=== PATIENT | male | born 1965 | race Caucasian/White ===

== ENCOUNTER 2022-01-18 10:08 | Emergency (ER) | payer MEDICAID, SELFPAY ==
[2022-01-18 10:09] VITALS: BP 120/66; PULSE 71; RESP 20; TEMP 36.4; BMI 33.0
--- NOTE | 2022-01-18 10:22 | ED.VIS.LOWEX ---
HPI History of Present Illness Chief Complaint: Lower Extremity Injury Detail of Chief Complaint: Atraumatic left great toe pain Informant: patient and spouse/S.O. Occured/Mechanism Mechanism/Context: Yes other see comment below Comment: Atraumatic Onset/Context/Timing Onset: Yesterday (1700) Context: Sudden Onset Timing: Continuous Quality of Pain: Aching and Throbbing Location: MTP joint left great toe Current Severity: Moderate Maximum Severity: Severe Worsened by: Pressure Relieved by: Nothing Associated Symptoms Associated Symptoms: Negative for Parasthesia, Weakness or Loss of Funtion Narrative Narrative: Patient is a 56-year-old male with history of gout who presents with atraumatic left great toe pain that started last evening at 1700. He states it hurts to put on or take off his shoe. He states any type of pressure increases the pain. He denies fever, chills or night sweats. He does have history of heart disease, hypertension and type 2 diabetes. Patient denies fever, chills night sweats. Patient denies paresthesia, anesthesia or motor weakness Tetanus Immunization: Unknown Prior similar symptoms: Yes Recent Illness/Hospitalization: No PFSH PFSH Home Medications prednisone 20 mg tablet 60 mg PO DAILY #15 TABLETS 01/18/22 [Rx Last Taken Unknown] Social History (Updated 01/18/22 @ 10:[address] Pawan Young MD) household members: spouse alcohol intake: current substance use type: does not use ROS ROS ED Constitutional Constitutional ED: Denies chills, fever(s), subjective, sweats or weight loss Cardiovascular Cardiovascular: Denies chest pain Respiratory/Chest Respiratory/Chest: Denies cough Endocrine Endocrinology: Denies polydipsia, polyphagia or polyuria Hematologic/Lymphatic Hematologic/Lymphatic: Denies easy bleeding or easy bruising EXAM Physical Exam Const Vital Signs: 01/18/22 10:09 Temperature 97.5 F L Temperature Source Temporal Pulse Rate 71 Respiratory Rate 20 H Blood Pressure 120/66 Blood Pressure Mean 84 Positive well nourished, well developed and obese; Negative for cachectic, contractures or unkempt Constitutional Narrative: Patient appears uncomfortable. General Appearance ED: well developed; Negative for unkempt, cachectic, contractures or NAD Nutritional Appearance: obese; Negative for cachectic HEENT Reports moist mucous membranes normocephalic and atraumatic Eyes PERRL Eyes Narrative: Extract muscle intact. Sclera is anicteric. Neck full ROM Resp normal respiratory effort Cardio regular rate and regular rhythm Extremity normal to inspection; Negative for full ROM Extremity Narrative: There is pain to palpation MTP joint of the left great toe. There is slight swelling. There is bogginess of the joint. There is pain with passive dorsi and plantarflexion of the great toe. General Extremety ED: Negative for cyanosis or edema General Extremity: Negative for cyanosis or edema Neuro oriented x3, CN's II-XII intact bilaterally and no sensory deficits noted Motor Exam: strength 5/5 throughout Psych mental status grossly normal Appearance: Negative for unkempt Skin no wounds Lesions: no lesions Rashes: no rashes MDM MDM MDM Narrative Medical decision making narrative: With no history of trauma prior history of gout and pain at the MTP joint of the great toe patient's history and physical is consistent with acute gouty flare. He was treated with prednisone. Discharge Plan Triage Chief Complaint: Lower Extremity Injury ED Provider: Pawan Young Dx/Rx/DC Orders Clinical Impression: Gouty arthritis of left great toe Instructions: ED Gout, ED Gout Diet Prescriptions: New prednisone 20 mg tablet 60 mg PO DAILY Qty: 15 0RF Referrals: Doctor,Your [STAFF PHYSICIAN] - 3-5 Days if not improving Disposition Disposition: Home, Self Care
[2022-01-18] MEDS: predniSONE 20 MG Tablet 60 MG PO (10:47)
== END 2022-01-18 10:54 | disposition home or self-care (01) ==
LOC: ED 10:39
PROVIDERS: Emergency Provider Emergency Medicine; PCP Internal Medicine; Visit Provider Emergency Medicine
DX: M10.9 Gout, unspecified (principal); E11.9 Type 2 diabetes mellitus without complications; I10 Essential (primary) hypertension; E66.9 Obesity, unspecified; M79.675 Pain in left toe(s)
CPT/HCPCS: 99283

== ENCOUNTER 2022-02-01 10:54 | Emergency (ER) | payer MEDICAID, SELFPAY ==
[2022-02-01 10:54] VITALS: BP 113/64; PULSE 50; RESP 14; TEMP 36.4; O2SAT 99; BMI 31.7
--- NOTE | 2022-02-01 11:14 | EDS_ITS ---
HPI History of Present Illness Chief Complaint: Upper Extremity Injury Informant: patient Narrative Narrative: 6-year-old male with history of chronic left shoulder pain presenting with worsening left shoulder pain as well as abscess to his left forearm. Patient states he started a new job 2 days ago and does a lot of repetitive movements with his arms which he thinks is what triggered it. Pain is worse over the anterior aspect of his shoulder. Denies any injury or trauma. States has been having this pain for at least 6 months. Is in pain management in [place] with Dr. Oconnor, and is due to have a refill of his Percocet tomorrow. Denies any numbness and tingling of his arm. Does note that over the weekend he had redness and swelling of his left forearm. He drained some purulence out of it and it seemed to be getting better. He is worried that he might need to be drained more. States the redness around the swelling has improved since initial drainage. No other complaints at this time. Is not currently on antibiotics. Was recently on a course of prednisone for gout flare. [facility] Medical History Diabetes Home Medications prednisone 20 mg tablet 60 mg PO DAILY #15 TABLETS 01/18/22 [Rx Last Taken Unknown] Allergy/AdvReac Type Severity Reaction Status Date / Time No Known Allergies Allergy Verified 02/01/22 10:59 Surgical History H/O knee surgery S/P CABG x 4 Social History household members: spouse Smoking Status: Current every day smoker tobacco type: cigarettes alcohol intake: current substance use type: does not use ROS ROS ED Constitutional Constitutional ED: Denies chills or fever(s) Eyes Eyes: Denies change in vision ENT ENT ED: Denies sore throat Cardiovascular Cardiovascular: Denies chest pain or palpitations Respiratory/Chest Respiratory/Chest: Denies cough Gastrointestinal Gastrointestinal: Denies abdominal pain or nausea Musculoskeletal Musculoskeletal: Reports other Details: left shoulder pain ; Denies back pain or myalgias Integumentary Reports abscess Neurologic Neurologic: Denies headache(s), paresthesias or weakness Psychiatric Psychiatric: Denies anxiety EXAM Physical Exam Const Vital Signs: 02/01/22 10:54 Temperature 97.5 F L Temperature Source Temporal Pulse Rate 50 L Respiratory Rate 14 Blood Pressure 113/64 Blood Pressure Mean 80 Pulse Ox 99 Oxygen Delivery Method Room Air Positive well nourished and well developed General Appearance ED: well developed and NAD HEENT normocephalic and atraumatic Eyes PERRL Chest Wall inspection of chest normal and palpation of chest normal Resp normal respiratory effort and clear to auscultation bilaterally Cardio regular rate and regular rhythm Cardio Narrative: 2+ radial pulses GI non-distended Extremity normal to inspection and full ROM Extremity Narrative: Patient is pain with palpation of the left bicipital groove of the shoulder. No obvious deformity of the arm or shoulder. Range of motion grossly intact. Normal line tender flakeboard strength. Neuro oriented x3 and no focal motor deficits Motor Exam: muscle tone normal throughout; Negative for general weakness Psych mental status grossly normal Skin Skin Narrative: 2 cm raised circumferential erythematous lesion with some mild central fluctuance of the left mid forearm, ventral aspect. There is no overlying scab. No surrounding cellulitic changes or induration. MDM MDM MDM Narrative Medical decision making narrative: .Patient is evaluated for acute on chronic shoulder pain. He started a new job and is doing more repetitive movements. Presentation most consistent with bicep tendinitis as he is in chronic pain medication we will give 1 dose of Percocet here but he will need to follow-up further with his pain management doctor for refill of his medicine. His abscess appears to be partially healed but will be deroofed to allow for further drainage. I do not think requires any antibiotics at this time. Is counseled to also take anti-inflammatories. Given that he was just on steroids for gout, would like to defer another dose of steroids at this time for his tendinitis. We given referral for orthopedics. Discharge Plan Triage Chief Complaint: Upper Extremity Injury ED Provider: Kayce Rodriguez Dx/Rx/DC Orders Clinical Impression: Biceps tendinitis on left, Abscess of forearm, left, Left anterior shoulder pain Instructions: ED Abscess Incision And Drainage, ED Tendonitis Prescriptions: No Action prednisone 20 mg tablet 60 mg PO DAILY Qty: 15 0RF Primary Care Provider: Clovis Lynn Referrals: Chao Teixeira MD [Med Staff - Active Staff] - Clovis Lynn MD [Primary Care Provider] - Disposition Disposition: Home, Self Care
[2022-02-01] MEDS: oxyCODONE 5 MG Tablet PO (11:19)
== END 2022-02-01 11:31 | disposition home or self-care (01) ==
LOC: ED 11:21
PROVIDERS: Emergency Provider Emergency Medicine; PCP Internal Medicine; Visit Provider Emergency Medicine
DX: M75.22 Bicipital tendinitis, left shoulder (principal); E11.9 Type 2 diabetes mellitus without complications; L02.414 Cutaneous abscess of left upper limb; M10.9 Gout, unspecified; M25.512 Pain in left shoulder; G89.29 Other chronic pain; F17.210 Nicotine dependence, cigarettes, uncomplicated; Z79.52 Long term (current) use of systemic steroids
CPT/HCPCS: 99283

== ENCOUNTER 2022-03-18 13:06 | Emergency (ER) | payer MEDICAID, SELFPAY ==
[2022-03-18 13:07] VITALS: BP 169/75; PULSE 53; RESP 16; TEMP 36.6; O2SAT 98; BMI 31.7
--- NOTE | 2022-03-18 13:52 | ED.RN ---
UPON ASSESSMENT OF PATIENT, PATIENT TELLS THIS RN THAT HE AND SIGNIFICANT OTHER ARE HOMELESS. THIS RN OFFERS PT AND RESOURCES. THEY STATE THEY ARE AWAITING VERIFICATION OF INCOME FOR AN APARTMENT. THIS RN MAKES VALENTINA FROM SOCIAL WORK AWARE.
--- NOTE | 2022-03-18 14:04 | CM.ED ---
SW Note Referral Source: sponge packer Reason: Homelessness RN advised that patient is homeless. Working with local agency regarding homelessness. RN stated patient aware of resources. SW met with patient and his significant other. Patient said that they are working with [facility]. They are just waiting for his significant other's income verification. SW provided 2-1-1 [facility] resource list. No other issues or concerns voiced. SW remains available if needs arise. [facility]
--- NOTE | 2022-03-18 14:19 | EX.ED.DYSGE1 ---
HPI History of Present Illness Chief Complaint: Abscess Narrative Narrative: Patient presents with his because of abscess on his left hand that has been there for a week. He had one on his forearm that he states they treated by squeezing and rubbing with an alcohol pad. He developed a small pustule on the dorsum of his left hand, and tried to squeeze it but he states that its becoming larger and more sore and tender. It developed a scab that is also growing larger. He denies any fevers or chills. No nausea or vomiting. No other symptoms. He presents for evaluation of this. He states that while he is diabetic, his sugars are well under control. [facility] Medical History Diabetes Home Medications prednisone 20 mg tablet 60 mg PO DAILY #15 TABLETS 01/18/22 [Rx Last Taken Unknown] sulfamethoxazole 800 mg-trimethoprim 160 mg tablet (Bactrim DS) 1 tab PO BID #14 tabs 03/18/22 [Rx Last Taken Unknown] Allergy/AdvReac Type Severity Reaction Status Date / Time No Known Allergies Allergy Verified 03/18/22 13:06 Surgical History H/O knee surgery S/P CABG x 4 Social History household members: spouse Smoking Status: Current every day smoker tobacco type: cigarettes alcohol intake: current substance use type: does not use ROS ROS ED ROS Narrative Constitutional: No fever, no chills. HEENT: No sore throat. No neck pain. No loss of vision. No rhinorrhea. Cardiovascular: No chest pain. No palpitations. No pedal edema. Respiratory: No cough, no shortness of breath. Abdominal: No abdominal pain. No nausea. No vomiting. Genitourinary: No dysuria. No hematuria. Musculoskeletal: No myalgias. No arthralgias. Neurologic: No headaches. No dizziness. No lightheadedness. Skin: No rash. No change in color. Positive lesion on left hand/abscess with tenderness to palpation. Psychiatric: No depression. No anxiety. EXAM Physical Exam Narrative Exam Narrative: Afebrile. Vital signs noted. HEENT: Normocephalic. Atraumatic. PERRL, EOMI. Neck soft and supple. No point tenderness or step off. Cardiovascular: Regular rate and rhythm. No murmurs, rubs, or gallops appreciated. Respiratory: No tachypnea. Lungs clear to auscultation bilaterally. Gastrointestinal: Abdomen soft, nontender, with normoactive bowel sounds. No rebound or guarding. Neurological: Awake. Alert. Nonfocal, nonlateralizing. Skin: No rash. Normal color. No pallor. +1 cm eschar on dorsum of left hand near the proximal wrist. Positive induration. Minimal to no fluctuance. Musculoskeletal: No pedal edema. Full range of motion extremities. Const Vital Signs: 03/18/22 13:07 03/18/22 15:08 Temperature 97.8 F Temperature Source Temporal Pulse Rate 53 L Respiratory Rate 16 18 Blood Pressure 169/75 H Blood Pressure Mean 106 Pulse Ox 98 Oxygen Delivery Method Room Air MDM MDM MDM Narrative Medical decision making narrative: I am unsure as to how much purulent material is contained underneath. Patient would like this Removed or at least attempt made at incision and drainage. He was told of the risk of continued infection and scarring as he is diabetic and acknowledges an understanding. He was given his first dose of Bactrim here in the emergency department. I feel he would benefit more from this healing abscess with a weeks worth of antibiotics. Lidocaine 1% was used as local anesthetic. See procedure note for details. Given that he is a type II diabetic, I do feel he would benefit from antibiotics. He was given a prescription for Bactrim DS for the next week. He will have a wound check by his primary care physician in the next 3 days. Return instructions to the emergency department were reviewed. Disposition is discharged home in stable condition. Procedures Other Procedures Procedure(s): Incision and drainage: Lidocaine 1% was used as a local anesthetic. Povidine iodine was used as a topical antiseptic. #11 blade was used to make a stellate incision. Manual expression of small amount of purulent material was produced with minimal serosanguineous fluid. Area was lightly irrigated. I do not feel that it would except packing. Patient noted improvement in his pain level in his hand and tolerated the procedure well. Discharge Plan Triage Chief Complaint: Abscess ED Provider: Quinten Bond Dx/Rx/DC Orders Clinical Impression: Type 2 diabetes mellitus, Abscess of hand, left Instructions: ED Abscess Incision And Drainage Prescriptions: New sulfamethoxazole-trimethoprim [Bactrim DS] 800-160 mg tablet 1 tab PO BID Qty: 14 0RF No Action prednisone 20 mg tablet 60 mg PO DAILY Qty: 15 0RF Stand Alone Forms: ED Work / School Excuse Primary Care Provider: Clovis Lynn Referrals: Clovis Lynn MD [Primary Care Provider] - 3-5 Days Disposition Disposition: Home, Self Care
[2022-03-18] MEDS: Lidocaine 1% (20 ml mdv) 20 ML Vial INFILT (14:42)
[2022-03-18] MEDS: Smz/Tmp Ds Tablet 1 TABLET PO (14:42)
[2022-03-18 15:08] VITALS: RESP 18
== END 2022-03-18 15:17 | disposition home or self-care (01) ==
PROVIDERS: Emergency Provider Emergency Medicine; PCP Internal Medicine; Visit Provider Emergency Medicine
DX: L02.512 Cutaneous abscess of left hand (principal); E11.9 Type 2 diabetes mellitus without complications; F17.210 Nicotine dependence, cigarettes, uncomplicated; Z95.1 Presence of aortocoronary bypass graft
CPT/HCPCS: 10060; 99283

== ENCOUNTER 2022-07-05 10:49 | Emergency (ER) | payer MEDICAID, SELFPAY ==
[2022-07-05 10:50] VITALS: BP 169/90; PULSE 98; RESP 14; TEMP 36.6; O2SAT 98; BMI 31.7
--- NOTE | 2022-07-05 11:38 | RAD_ITS ---
STUDY: X-RAY - LEFT FOOT CLINICAL: Male, 57 years old. PAIN TECHNIQUE: 3 view(s) of the foot. COMPARISON: None. FINDINGS: Normal talus, calcaneus, and tarsal bones. Normal visualized subtalar, talonavicular, calcaneocuboid, tarsal and tarsometatarsal articulations. Normal metatarsi. There is mild degenerative arthrosis of the metatarsophalangeal joint of the hallux . Normal tibial and fibular sesamoid bones. Normal interphalangeal joint of the great toe. Normal phalanges of the great toe. Normal second through fifth metatarsophalangeal joints. Normal interphalangeal joints and phalanges of the lesser toes. Atherosclerotic calcifications are present. The soft tissue structures are unremarkable. There is no demonstrated fracture. RAD/Foot min 3 Views IMPRESSION: 1. 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
--- NOTE | 2022-07-05 13:16 | EX.ED.DYSGE1 ---
HPI <PORTIA Lu - Last Filed: 07/05/22 14:48> History of Present Illness Chief Complaint: Cold Sx Narrative Narrative: Patient presents today with right-sided facial pressure and pain that started on Monday. He states he has had nasal congestion and a cough as well. He denies fever, shortness of breath, chest pain, nausea, vomiting, and diarrhea. Patient also is complaining of left first toe redness and pain at the MTP. He has a history of gout and thinks this feels like gout. He states he cannot take the preventative medication for gout. He did not injure his toe in any way. [facility] <PORTIA Lu - Last Filed: 07/05/22 14:48> [facility] Medical History (Updated 07/05/22 @ 13:[address] Andrea Queen MD) Diabetes Gout Home Medications prednisone 20 mg tablet 60 mg PO DAILY #15 TABLETS 01/18/22 [Rx Last Taken Unknown] sulfamethoxazole 800 mg-trimethoprim 160 mg tablet (Bactrim DS) 1 tab PO BID #14 tabs 03/18/22 [Rx Last Taken Unknown] prednisone 10 mg tablet 10 mg PO UD #30 tabs 07/05/22 [Rx Last Taken Unknown] Allergy/AdvReac Type Severity Reaction Status Date / Time No Known Allergies Allergy Verified 07/05/22 10:52 Surgical History H/O knee surgery S/P CABG x 4 Social History household members: spouse Smoking Status: Current every day smoker tobacco type: cigarettes alcohol intake: current substance use type: does not use ROS <PORTIA Lu - Last Filed: 07/05/22 14:48> ROS ED Constitutional Constitutional ED: Denies chills, fever(s) or sweats Eyes Eyes: Denies blurry vision, change in vision or diplopia ENT ENT ED: Reports nasal congestion and sinus pressure; Denies ear pain or sore throat Cardiovascular Cardiovascular: Denies chest pain or palpitations Respiratory/Chest Respiratory/Chest: Denies cough, dyspnea or dyspnea on exertion Gastrointestinal Gastrointestinal: Denies abdominal pain, diarrhea, nausea or vomiting Genitourinary Genitourinary ED: Denies dysuria, hematuria or urinary frequency Musculoskeletal Musculoskeletal: Denies arthralgias, back pain or myalgias Integumentary Denies abscess, Abrasions or rash Neurologic Neurologic: Denies headache(s), paresthesias or weakness Psychiatric Psychiatric: Denies anxiety, depression or suicidal ideation Endocrine Endocrinology: Denies cold intolerance or heat intolerance EXAM <PORTIA Lu - Last Filed: 07/05/22 14:48> Physical Exam Const Vital Signs: 07/05/22 10:50 07/05/22 13:54 Temperature 97.9 F Temperature Source Temporal Pulse Rate 98 74 Respiratory Rate 14 18 Blood Pressure 169/90 H 191/94 H Blood Pressure Mean 116 Pulse Ox 98 97 Oxygen Delivery Method Room Air Positive well nourished and well developed General Appearance ED: well developed and NAD HEENT Reports TM's clear and moist mucous membranes Negative for trauma or tenderness Tympanic Membrane ED: Yes TM's clear Throat: posterior oropharynx normal, tonsils normal and uvula midline Eyes PERRL and EOMs intact bilaterally Neck no lymphadenopathy and supple Chest Wall inspection of chest normal and palpation of chest normal Resp normal respiratory effort and clear to auscultation bilaterally Cardio regular rate, regular rhythm and no murmurs GI non-tender, non-distended and no masses Palpation: soft Extremity Extremity Narrative: First left toe erythemic, tender, and edematous at the MTP. Neuro oriented x3, CN's II-XII intact bilaterally and no sensory deficits noted Sensorium / Orientation: alert Motor Exam: strength 5/5 throughout Psych mental status grossly normal Skin no rashes or lesions noted, no wounds and skin turgor normal <Dr. Andrea Queen MD - Last Filed: 07/05/22 13:52> Physical Exam Const Vital Signs: 07/05/22 10:50 07/05/22 13:54 Temperature 97.9 F Temperature Source Temporal Pulse Rate 98 74 Respiratory Rate 14 18 Blood Pressure 169/90 H 191/94 H Blood Pressure Mean 116 Pulse Ox 98 97 Oxygen Delivery Method Room Air MDM <PORTIA Lu - Last Filed: 07/05/22 14:48> MDM MDM Narrative Medical decision making narrative: Patient has had nasal congestion and some discomfort in his right maxillary sinus area since Monday. He has not had a fever or chills. He has not tried taking any decongestants. I do not feel antibiotics are indicated at this time as it has only been four days of symptoms and he has been afebrile. I have encouraged him to begin taking the counter decongestant such as Sudafed as long as his blood pressure is not over 160 systolic or take nasal decongestions. He has been put on prednisone for his gout and told to begin taking ibuprofen. I am comfortable with patient discharging home in stable condition. COVID and flu are negative. Three-view x-ray of the left foot negative for any acute findings. Patient is comfortable with plan. <Dr. Andrea Queen MD - Last Filed: 07/05/22 13:52> [facility] Treatment and Re-Evaluation Narrative: Seen and evaluated independently and in conjunction with physician material assistant. Agree with notes above unless documented otherwise. Patient with couple days of nasal congestion, some discomfort in his right maxillary area into his retro-orbital area, but without a headache or fevers/chills. He has green nasal discharge. No coughing, odynophagia, dyspnea. He states he has been unable to take Colcrys for his gout due to his CABG, but he feels like he has a gout flareup in his left great MTPJ. No injury, it has been bothering him for a few days now, red, hurts to barely touch it. On exam, it is erythematous, warm, very tender. He can move the toe. There is no abscess or nidus for infection. It is consistent with gout, especially given his history of it. We will put him on prednisone for that. I do not suspect an intracranial abnormality or bacterial sinusitis, so I do not think antibiotics are indicated but I did discuss decongestants, particularly nasal with him which I recommend trying. He is comfortable with that plan. He already has a prescription for Percocet being filled for him. With regards to data here, swabs for COVID influenza are negative, and 3 view x-ray of the left foot on my interpretation are negative for any acute. Discharge Plan Triage Chief Complaint: Cold Sx ED Midlevel Provider: Jihan Rodríguez ED Provider: Andrea Queen Dx/Rx/DC Orders Clinical Impression: Gout, Sinus congestion Instructions: ED Gout, ED Sinusitis (No Antibiotics) Prescriptions: New prednisone 10 mg tablet 10 mg PO UD Qty: 30 0RF Rx Instructions: Take 4 tablets daily for 3 days, then 3 daily for 3 days, then 2 daily for 3 days, then 1 a day for 3 days No Action prednisone 20 mg tablet 60 mg PO DAILY Qty: 15 0RF sulfamethoxazole-trimethoprim [Bactrim DS] 800-160 mg tablet 1 tab PO BID Qty: 14 0RF Primary Care Provider: Clovis Lynn Referrals: Clovis Lynn MD [Primary Care Provider] - 5-7 Days Activity Restrictions/Additional Instructions: Begin taking nasal spray as directed on the bottle containing oxymetazoline or phenylephrine for the sinus symptoms. You can take [id number] decongestants such as Sudafed for the next few days, but watch her blood pressure, do not take if you are over 160 systolic. Please follow-up with PCP if symptoms do not improve in 5 to 7 days. Return if symptoms worsen. Disposition Disposition: Home, Self Care Discharge Date/Time: 07/05/22 13:56
[2022-07-05] MEDS: predniSONE 20 MG Tablet 40 MG PO (13:26)
[2022-07-05 13:54] VITALS: BP 191/94; PULSE 74; RESP 18; O2SAT 97
== END 2022-07-05 13:56 | disposition home or self-care (01) ==
PROVIDERS: Emergency Provider Emergency Medicine; PCP Internal Medicine; Visit Provider Emergency Medicine
DX: M10.9 Gout, unspecified (principal); E11.9 Type 2 diabetes mellitus without complications; R09.81 Nasal congestion; Z20.822 Contact with and (suspected) exposure to COVID-19; F17.210 Nicotine dependence, cigarettes, uncomplicated; Z79.52 Long term (current) use of systemic steroids
CPT/HCPCS: 73630; 87428; 99282

== ENCOUNTER 2023-12-05 22:47 | Inpatient (IN) | payer MEDICAID, SELFPAY ==
[2023-12-05 22:50] VITALS: BP 161/84; PULSE 123; RESP 28; TEMP 36.1; O2SAT 92; BMI 37.3
[2023-12-05 23:13] LABS: Bedside Glucose 169 mg/dL (74-106)
--- NOTE | 2023-12-05 23:15 | EKG12_ITS ---
Test Reason : GEN ILL Blood Pressure : / mmHG Vent. Rate : 117 BPM Atrial Rate : 117 BPM P-R Int : 158 ms QRS Dur : 122 ms QT Int : 344 ms P-R-T Axes : 032 -30 006 degrees QTc Int : 479 ms Sinus tachycardia Possible Left atrial enlargement Left axis deviation Right bundle branch block Inferior infarct , age undetermined Marked ST abnormality, possible septal subendocardial injury Abnormal ECG Confirmed by Migel Mustafa ([id number]), society editor TYLER CROCKETT ([id number]) on 12/06/2023 2:56:00 PM Referred By: Confirmed By:Migel Mustafa
--- NOTE | 2023-12-05 23:15 | RAD_ITS ---
EXAM: XR CHEST, 1 VIEW CLINICAL INDICATION: chest pain TECHNIQUE: Frontal view of the chest. COMPARISON: No relevant prior studies available. FINDINGS: LUNGS AND PLEURAL SPACES: Patchy opacity right mid and lower lung may be due to consolidation/pneumonia and/or atelectasis. Moderate loculated right pleural effusion. No pneumothorax. HEART: Unremarkable. Cardiac silhouette not enlarged. MEDIASTINUM: Central airways and mediastinal contour are unremarkable. BONES/JOINTS: Sternal wires. No acute fracture. SOFT TISSUES: Unremarkable. RAD/Chest 1 View (Portable) IMPRESSION: 1. Patchy opacity right mid and lower lung may be due to consolidation/pneumonia and/or atelectasis. Consider CT for further evaluation. 2. Moderate loculated right pleural effusion. Electronically Signed: Migel Vaz MD at 23:30 EDT ,
[2023-12-05 23:30] LABS: Absolute Lymphocyte Count 2.55 X10^3/uL (0.83-4.51); Absolute Neutrophil Count 23.1 X10^3/uL (2.0-7.7); Basophil# 0.07 X10^3/uL; Basophil% 0.2 % (0-1); Eosinophil# 0.37 X10^3/uL; Eosinophils% 1.3 % (0-5); Hematocrit 44.6 % (40-54); Hemoglobin 14.1 g/dL (13.0-16.5); Lymphocyte # 2.55 X10^3/ul (0.83-4.51); Lymphocyte % 9.1 % (19-41); Mean Corp Hgb Conc 31.6 g/dL (32-36); Mean Corpuscular Hgb 28.1 pg (27.0-32.0); Mean Platelet Vol. 11.3 fl (6.2-12.0); Monocyte# 1.75 X10^3/uL; Monocyte% 6.2 % (0-10); NRBC Flagged by Analyzer 0 % (0-5); Neutrophil # 23.08 X10^3/uL (2.7-7.7); POSITIVE DIFFERENTIAL YES; Platelet Count 351 K/mm3 (150-450); RBC Distribution Width CV 13.9 % (11.6-14.6); RBC Distribution Width SD 45.1 fl (35.1-43.9); Red Blood Count 5.01 M/mm3 (4.6-6.2); White Blood Count 28.2 K/mm3 (4.4-11.0)
[2023-12-05 23:35] LABS: Differential Indicated SCAN CRITERIA MET
[2023-12-05 23:49] LABS: Anion Gap 10 (5-15); BUN 26 mg/dL (7-18); BUN/Creat Ratio 17.3 RATIO (10-20); Calcium,Total 9.2 mg/dL (8.5-10.1); Chloride 105 mmol/L (98-107); EST Glomerular Filtration Rate 51 mL/min (>60); Est Glom Filt Rate - Afr Amer 62 mL/min (>60); Glucose 180 mg/dL (74-106); Potassium 3.9 mmol/L (3.5-5.1); Sodium Level 136 mmol/L (136-145); Troponin-I HS (w/2H Reflex) 15 pg/mL (3.0-78.0)
[2023-12-06] VITALS (42 sets, daily range): BP systolic 124–213; BP diastolic 75–112; PULSE 77–128; RESP 12–40; TEMP 36.5–37.4; O2SAT 89–100; BMI 36.9; BMI 37.0
--- NOTE | 2023-12-06 00:03 | CT_ITS ---
EXAM: CT HEAD WITHOUT INTRAVENOUS CONTRAST CLINICAL INDICATION: altered mental status TECHNIQUE: Multiple axial images were obtained of the head without intravenous contrast. This CT exam was performed using one or more of the following dose reduction techniques: automated exposure control, adjustment of the mA and/or kV according to patient size, and/or use of iterative reconstruction technique. RADIATION DOSE: CTDIvol = 44.99 mGy, DLP = 880.47 mGy-cm COMPARISON: No relevant prior studies available. FINDINGS: BRAIN AND EXTRA-AXIAL SPACES: Moderate generalized atrophy. Moderate low density bilaterally in the deep white matter. 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 No intra- or extra-axial hemorrhage. No intracranial mass or mass effect. Posterior fossa structures are unremarkable. No hydrocephalus. Basal cisterns are patent. BONES/JOINTS: Unremarkable. No discrete lytic or blastic abnormalities. SINUSES: Mucosal thickening within air-fluid level left maxillary sinus may be due to acute sinusitis. MASTOID AIR CELLS: Unremarkable. Clear. ORBITS: Visualized globes, extraocular muscles, optic nerves and retrobulbar fat appear unremarkable. DENTAL: Extensive dental and periodontal disease involving the maxilla. CT/Brain/Head without Contrast IMPRESSION: 1. Mucosal thickening within air-fluid level left maxillary sinus may be due to acute sinusitis. 2. Moderate generalized atrophy. Moderate low density bilaterally in the deep white matter. This likely represents chronic small vessel ischemic changes in the deep white matter. 3. 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 4. Extensive dental and periodontal disease involving the maxilla. Electronically Signed: Migel Vaz MD at 0:56 EDT ,
--- NOTE | 2023-12-06 00:03 | CT_ITS ---
EXAM: CT ABDOMEN AND PELVIS WITH INTRAVENOUS CONTRAST CLINICAL INDICATION: ruq pain TECHNIQUE: Helically acquired images were obtained of the abdomen and pelvis with intravenous contrast. This CT exam was performed using one or more of the following dose reduction techniques: automated exposure control, adjustment of the mA and/or kV according to patient size, and/or use of iterative reconstruction technique. CONTRAST: 100 cc of Isovue-370 IV. RADIATION DOSE: CTDIvol = 27.76 mGy, DLP = 2528.78 mGy-cm COMPARISON: No relevant prior studies available. FINDINGS: LOWER THORAX: Compressive atelectasis right lower lobe. Moderate loculated right pleural effusion. Coronary artery calcifications. No cardiomegaly. ABDOMEN: LIVER: There is diffuse low-attenuation of the liver. GALLBLADDER AND BILE DUCTS: Unremarkable. No calcified gallstones. No gallbladder distention or wall edema. No intra- or extrahepatic biliary ductal dilation. PANCREAS: Unremarkable. No focal cystic or solid mass. SPLEEN: Unremarkable. Normal size without focal cystic or solid mass. ADRENALS: Unremarkable. No nodules. KIDNEYS AND URETERS: Unremarkable. Normal renal size and position. No hydronephrosis. STOMACH AND BOWEL: Unremarkable. No stomach or bowel distention. No focal inflammatory change. PELVIS: APPENDIX: No evidence of acute appendicitis. BLADDER: Unremarkable. REPRODUCTIVE: Unremarkable as visualized. No mass. ABDOMEN and PELVIS: INTRAPERITONEAL SPACE: Unremarkable. No ascites or other fluid collection. No free air. BONES/JOINTS: Unremarkable. No suspicious lytic or blastic abnormality. SOFT TISSUES: Unremarkable. No discrete abdominal or pelvic wall hernia. VASCULATURE: See above. LYMPH NODES: Unremarkable. No enlarged lymph nodes. CT/Abdomen/Pelvis W IV Cont ONLY IMPRESSION: 1. No acute abdominal pelvic abnormality. 2. Compressive atelectasis right lower lobe. 3. Moderate loculated right pleural effusion. 4. Coronary artery disease. 5. Fatty liver. Electronically Signed: Migel Vaz MD at 0:55 EDT ,
--- NOTE | 2023-12-06 00:03 | CT_ITS ---
EXAM: CT ANGIOGRAPHY CHEST WITHOUT AND WITH INTRAVENOUS CONTRAST CLINICAL INDICATION: chest pain TECHNIQUE: Helically acquired angiography images were obtained of the chest without and with intravenous contrast. This CT exam was performed using one or more of the following dose reduction techniques: automated exposure control, adjustment of the mA and/or kV according to patient size, and/or use of iterative reconstruction technique. MIP reconstructed images were created and reviewed. CONTRAST: 100 cc of Isovue-370 IV. RADIATION DOSE: CTDIvol = 27.76 mGy, DLP = 2528.78 mGy-cm COMPARISON: No relevant prior studies available. FINDINGS: PULMONARY ARTERIES: Unremarkable. Normal in caliber. No evidence of pulmonary embolism. AORTA: Unremarkable. Normal in caliber. No evidence of dissection. GREAT VESSELS OF AORTIC ARCH: Unremarkable. Normal in caliber. No evidence of dissection. LUNGS AND PLEURAL SPACES: Moderate loculated right pleural effusion with compressive atelectasis of the right lower lobe. No mass. No pneumothorax. HEART: Coronary artery calcifications. Heart size is normal. No pericardial effusion. MEDIASTINUM: Enlarged right paratracheal and subcarinal lymph nodes measuring up to 1.8 cm maximum dimension. Esophagus is unremarkable. No hiatal hernia. THYROID: Unremarkable. No thyroid lesions. BONES/JOINTS: Unremarkable. No suspicious lytic or blastic abnormality. TUBES, LINES AND DEVICES: Sternal wires. CT/CTA Chest W/WO Contrast IMPRESSION: 1. No pulmonary embolism or aortic dissection. 2. Mild right paratracheal and subcarinal lymphadenopathy. 3. Moderate loculated right pleural effusion with compressive atelectasis of the right lower lobe. 4. Coronary artery disease. Electronically Signed: Migel Vaz MD at 1:04 EDT ,
--- NOTE | 2023-12-06 00:04 | EDS_ITS ---
HPI History of Present Illness Chief Complaint: General Illness Narrative Narrative: 58-year-old male presenting with altered mental status. He seems a little bit confused when he is talking and has garbled speech but is able to tell me its midnight Monday. He knows where he is. Apparently he has been having intermittent bouts of confusion over the last 3 to 4 days. No fever at home. He complains of abdominal pain and points to his right upper quadrant. He states the last time he ate was a few days ago but he does not report pain with eating. He denies constipation or diarrhea. Denies urinary complaints. Patient's states has been anxious and asked for Ativan a couple of times few days ago. She states he does not typically need this. Patient's says he seems like he has been staggering to walk. Denies any history of trauma. He does not have a cough or shortness of breath for he and his . [facility] Medical History Anxiety Myocardial infarct Gout Diabetes Home Medications ?Medication ?Instructions ?Recorded ?Last Taken ?Type allopurinol 300 mg tablet 300 mg PO DAILY 12/05/23 Unknown History aspirin 325 mg tablet 325 mg PO DAILY 12/05/23 Unknown History atorvastatin 40 mg tablet 40 mg PO DAILY 12/05/23 Unknown History blood sugar diagnostic (True 12/05/23 Unknown History Metrix Glucose Test Strip) cyclobenzaprine 10 mg tablet 10 mg PO BID 12/05/23 Unknown History fluticasone propionate 50 1 spray intranasal BID 12/05/23 Unknown History mcg/actuation nasal spray,suspension glimepiride 1 mg tablet 2 mg PO DAILY 12/05/23 Unknown History glimepiride 2 mg tablet 2 mg PO DAILY 12/05/23 Unknown History lancets 30 gauge (Unilet Super 12/05/23 Unknown History Thin Lancets) lorazepam 2 mg tablet 2 mg PO BID 12/05/23 Unknown History metformin 850 mg tablet 850 mg PO BID 12/05/23 Unknown History omeprazole 40 mg capsule,delayed 40 mg PO DAILY 12/05/23 Unknown History release oxycodone-acetaminophen 5 mg-325 1 tab PO 4X/DAY PRN PRN pain 12/05/23 Unknown History mg tablet pregabalin 75 mg capsule 75 mg PO BID 12/05/23 Unknown History sildenafil 100 mg tablet 100 mg PO DAILY PRN intercourse 12/05/23 Unknown History Allergy/AdvReac Type Severity Reaction Status Date / Time No Known Allergies Allergy Verified 07/05/22 10:52 Surgical History H/O knee surgery S/P CABG x 4 Social History household members: spouse Smoking Status: Current every day smoker tobacco type: cigarettes alcohol intake: current substance use type: does not use ROS ROS ED Constitutional Constitutional ED: Denies chills or fever(s) Eyes Eyes: Denies change in vision ENT ENT ED: Denies rhinorrhea or sore throat Cardiovascular Cardiovascular: Denies chest pain or palpitations Respiratory/Chest Respiratory/Chest: Denies cough or dyspnea Gastrointestinal Gastrointestinal: Reports abdominal pain; Denies melena, nausea or vomiting Genitourinary Genitourinary ED: Denies dysuria or hematuria Musculoskeletal Musculoskeletal: Denies arthralgias Integumentary Denies abscess Neurologic Neurologic: Denies headache(s) or paresthesias Psychiatric Psychiatric: Denies anxiety or depression EXAM Physical Exam Const Vital Signs: 12/05/23 22:50 12/05/23 22:59 12/05/23 23:15 Temperature 97 F L Temperature Source Temporal Pulse Rate 123 H Respiratory Rate 28 H Respiratory Effort Labored Respiratory Pattern Tachypnea Blood Pressure 161/84 H Blood Pressure Mean 109 Pulse Ox 92 Oxygen Delivery Method Room Air Room Air 12/06/23 00:13 12/06/23 00:49 Temperature Temperature Source Pulse Rate 114 H 114 H Respiratory Rate 31 H 28 H Respiratory Effort Respiratory Pattern Blood Pressure 146/93 H 153/85 H Blood Pressure Mean 110 107 Pulse Ox 92 91 Oxygen Delivery Method Room Air Room Air Positive obese and unkempt General Appearance ED: unkempt; Negative for pallor Nutritional Appearance: obese HEENT Reports dry mucous membranes trauma Mouth ED: Yes dry mucous membranes Mouth: dry mucous membranes Eyes PERRL and EOMs intact bilaterally Neck no lymphadenopathy Chest Wall inspection of chest normal and palpation of chest normal Resp Resp Narrative: Tachypneic. Diminished breath sounds right middle and lower lobe. GI GI Narrative: Tenderness to palpation right upper quadrant. Negative Asencio sign. Neuro oriented x3 and CN's II-XII intact bilaterally Sensorium / Orientation: alert Motor Exam: general weakness Psych Appearance: unkempt Attitude: agitated Mood & Affect: anxious Skin no wounds General Skin Exam: Negative for jaundice or pallor MDM MDM MDM Narrative Medical decision making narrative: Presenting with confusion per his . He does appear to have garbled speech at times but other times he can speak normally. He can tell me that it is midnight on Monday. He knows where he is at. He reports abdominal pain but on examination I am not reproducing any pain in the right upper quadrant and he does not have a Asencio sign. Patient had protocol labs started prior to me seeing him and he has a 28,000 white count and his tachycardic at 123 and respiratory 28. He reports that he is not short of breath and has not been coughing. Nobody is checked a temperature to see if he had a fever. Given the abnormal vital signs and white blood cell count sepsis protocol was initiated. He was given vancomycin and Zosyn as well as 2 L of IV fluids. Chest x-ray interpreted by myself shows a right middle and lower lobe pneumonia with a pleural effusion. Radiology interprets this and agrees. Patient had a BMP already drawn which shows a creatinine of 1.5 with no comparison. Electrolytes appear to be normal. Glucose 180 without anion gap. Troponin is 15 and EKG on my interpretation shows a sinus tachycardia at 170 bpm without sign of ischemic change. Given the patient's altered mental status I obtained a CT brain to rule out acute intracranial process. He also had a CT angiogram to rule out PE. CT of the abdomen pelvis was obtained due to the abdominal pain. I offered the patient something for pain but he declined saying maybe later. CT brain does not show any acute findings and shows an old capsuluganglionic infarct. CT of the abdomen pelvis does not show any acute findings within the abdomen but does show a moderate loculated pleural effusion. CTA of the chest is pending. In addition to this LFTs, lipase, INR, lactic acid, urinalysis all pending. Patient signed out to incoming ED physician for monitoring. Lab Data Attestation: I reviewed the patient's lab results. Labs: Laboratory Results - last 24 hr 12/05/23 12/05/23 22:55 23:10 WBC 28.2 H RBC 5.01 Hgb 14.1 Hct 44.6 MCV 89.0 MCH 28.1 MCHC 31.6 L RDW Std Deviation 45.1 H RDW Coeff of Lidia 13.9 Plt Count 351 MPV 11.3 Immature Gran % (Auto) 1.200 H Neut % (Auto) 82.0 H Lymph % (Auto) 9.1 L [place] % (Auto) 6.2 Eos % (Auto) 1.3 Baso % (Auto) 0.2 Absolute Neuts (auto) 23.1 H Absolute Lymphs (auto) 2.55 Nucleated RBC % 0 Differential Comment SCANNED Diff Path Review May foll Sodium 136 Potassium 3.9 Chloride 105 Carbon Dioxide 21.0 Anion Gap 10 BUN 26 H Creatinine 1.50 H Estim Creat Clear Calc 66.20 Est GFR (MDRD) Af Amer 62 Est GFR (MDRD) Non-Af 51 L BUN/Creatinine Ratio 17.3 Glucose 180 H Calcium 9.2 Troponin I High Sens 15 POC Glucose 169 H Radiography Diagnostic Testing: Clinical Impression(s) from Imaging Studies Chest X-Ray 12/05/23 23:15 IMPRESSION: 1. Patchy opacity right mid and lower lung may be due to consolidation/pneumonia and/or atelectasis. Consider CT for further evaluation. 2. Moderate loculated right pleural effusion. Electronically Signed: Migel Vaz MD at 23:30 EDT , Abdomen/Pelvis CT 12/06/23 00:03 IMPRESSION: 1. No acute abdominal pelvic abnormality. 2. Compressive atelectasis right lower lobe. 3. Moderate loculated right pleural effusion. 4. Coronary artery disease. 5. Fatty liver. Electronically Signed: Migel Vaz MD at 0:55 EDT , Brain CT 12/06/23 00:03 IMPRESSION: 1. Mucosal thickening within air-fluid level left maxillary sinus may be due to acute sinusitis. 2. Moderate generalized atrophy. Moderate low density bilaterally in the deep white matter. This likely represents chronic small vessel ischemic changes in the deep white matter. 3. 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 4. Extensive dental and periodontal disease involving the maxilla. Electronically Signed: Migel Vaz MD at 0:56 EDT , Discharge Plan Triage Chief Complaint: General Illness ED Provider: Mao Rivas Dx/Rx/DC Orders Prescriptions: No Action atorvastatin 40 mg tablet 40 mg PO DAILY allopurinol 300 mg tablet 300 mg PO DAILY aspirin 325 mg tablet 325 mg PO DAILY cyclobenzaprine 10 mg tablet 10 mg PO BID (DME) True Metrix Glucose Test Strip Strip 1 strip MISCELLANEOUS DAILY glimepiride 1 mg tablet 2 mg PO DAILY fluticasone propionate 50 mcg/actuation spray,suspension 1 spray INTRANASAL BID metformin 850 mg tablet 850 mg PO BID omeprazole 40 mg capsule,delayed release(DR/EC) 40 mg PO DAILY sildenafil 100 mg tablet 100 mg PO DAILY PRN (Reason: intercourse) Patient Comments: has not taken in two weeks glimepiride 2 mg tablet 2 mg PO DAILY oxycodone-acetaminophen 5-325 mg tablet 1 tab PO 4X/DAY PRN PRN (Reason: pain) lorazepam 2 mg tablet 2 mg PO BID pregabalin 75 mg capsule 75 mg PO BID (DME) lancets [Unilet Super Thin Lancets] 30 gauge misc 1 lancet MISCELLANEOUS DAILY Primary Care Provider: Clovis Lynn Referrals: Clovis Lynn MD [Primary Care Provider] - Print Language: Tamazight
[2023-12-06 00:18] LABS: Differential Comment SCANNED
[2023-12-06] MEDS: 0.9% Normal Saline (1000mL) 1,000 ML 999 ML IV ×4 (00:46→08:05)
[2023-12-06] MEDS: Piperacil/Tazobactam 3.375 GM in 0.9% Normal Saline (50mL MB+) 50 ML IV ×4 (01:08→21:04)
[2023-12-06 01:10] LABS: International Normalized Ratio 1.2; Prothrombin Time (Protime)PT. 14.9 SECONDS (11.7-14.9)
[2023-12-06 01:22] LABS: Lactic Acid 1.9 mmol/L (0.4-1.9)
[2023-12-06 01:25] LABS: Reflex Troponin-HS? (from REC) Y
[2023-12-06 01:31] LABS: AST(SGOT) 14 U/L (15-37); Alanine Aminotransfer ALT/SGPT 25 U/L (16-61); Albumin, Serum 2.9 g/dL (3.2-5.0); Alkaline Phosphatase 157 U/L (45-117); Bilirubin, Direct 0.56 mg/dL (0.00-0.30); Globulin 4.9 g/dL (2.2-4.2); Lipase 18 U/L (13-75); Protein, Total 7.8 g/dL (6.4-8.2)
[2023-12-06] MEDS: Vancomycin HCl 1,750 MG in 0.9% Normal Saline (500mL Bag) 500 ML 250 MG IV (01:36)
[2023-12-06 02:36] LABS: Ammonia < 10.0 umol/L (11-32)
--- NOTE | 2023-12-06 03:11 | PCM.HP.STD ---
HPI - General General Date of Admission: 12/06/23 Date of Service: 12/06/23 Chief Complaint: Altered Mental Status. HPI Narrative BOBBY HARRIS, is a 58 M with a past medical history of essential hypertension, obesity; with BMI of 37.3 this admission, DM-2; of unknown control, CAD; s/p CT and CABG x 4, erectile dysfunction, tobacco abuse, gout, OA; with history of knee surgery and GERD who presents to [facility] ER complaining of altered mental status. Mr. Harris is not a fully reliable historian so information was gathered from chart, medical staff and computer. According to the records his symptoms began approximately 3 to 4 days prior to admission with intermittent bouts of confusion. The patient's informed the ER he had been anxious and asked for Ativan a couple of times a few days ago but she states he typically does not need this medication. Soon thereafter his noted he has been staggering to walk and more confused but she denies any history of trauma. He did complain of abdominal pain focused mainly in his right upper quadrant with cough and decreased appetite but he denies constipation or diarrhea. He has no history of lung cancer or loculated pleural effusions. There is no report of fever, chills, nausea, vomiting, chest pain or shortness of breath though his respiratory rate was 36 breaths/min and tachycardia at 108 bpm with obvious confusion and leukocytosis of 28.2 K present on admission and ABG pending at this time. In the ER patient was noted to have a CT scan of the abdomen and pelvis with IV contrast that revealed compressive atelectasis of the Right lower lobe with a moderate loculated Right pleural effusion complicated by clinical signs of sepsis due to suspected parapneumonic effusion with pneumonia with head CT also positive for evidence of acute Left maxillary sinusitis with leukocytosis of 28.2K with Left shift present on admission complicated by clinical evidence of septic encephalopathy and acute respiratory insufficiency and the patient was then admitted to the ICU for treatment under the sepsis protocol for stay that is expected to extend beyond 2 midnights with plan for urgent thoracentesis at interventional radiology in the a.m. [facility] [place] Medical History Anxiety Myocardial infarct Gout Diabetes Home Medications ?Medication ?Instructions ?Recorded ?Last Taken ?Type allopurinol 300 mg tablet 300 mg PO DAILY 12/05/23 Unknown History aspirin 325 mg tablet 325 mg PO DAILY 12/05/23 Unknown History atorvastatin 40 mg tablet 40 mg PO DAILY 12/05/23 Unknown History blood sugar diagnostic (True 12/05/23 Unknown History Metrix Glucose Test Strip) cyclobenzaprine 10 mg tablet 10 mg PO BID 12/05/23 Unknown History fluticasone propionate 50 1 spray intranasal BID 12/05/23 Unknown History mcg/actuation nasal spray,suspension glimepiride 1 mg tablet 2 mg PO DAILY 12/05/23 Unknown History glimepiride 2 mg tablet 2 mg PO DAILY 12/05/23 Unknown History lancets 30 gauge (Unilet Super 12/05/23 Unknown History Thin Lancets) lorazepam 2 mg tablet 2 mg PO BID 12/05/23 Unknown History metformin 850 mg tablet 850 mg PO BID 12/05/23 Unknown History omeprazole 40 mg capsule,delayed 40 mg PO DAILY 12/05/23 Unknown History release oxycodone-acetaminophen 5 mg-325 1 tab PO 4X/DAY PRN PRN pain 12/05/23 Unknown History mg tablet pregabalin 75 mg capsule 75 mg PO BID 12/05/23 Unknown History sildenafil 100 mg tablet 100 mg PO DAILY PRN intercourse 12/05/23 Unknown History Allergy/AdvReac Type Severity Reaction Status Date / Time No Known Allergies Allergy Verified 07/05/22 10:52 Surgical History H/O knee surgery S/P CABG x 4 Social History household members: spouse Smoking Status: Current every day smoker tobacco type: cigarettes alcohol intake: current substance use type: does not use ROS ROS Narrative Patient has significant confusion and therefore cannot complete a full review of systems at this time. Review of Systems ROS Unobtainable: due to encephalopathy Vital Signs Vital Signs Vital Signs: 12/05/23 22:50 12/05/23 22:59 12/05/23 23:15 Temperature 97 F L Temperature Source Temporal Pulse Rate 123 H Respiratory Rate 28 H Respiratory Effort Labored Respiratory Pattern Tachypnea Blood Pressure 161/84 H Blood Pressure Mean 109 Pulse Ox 92 Oxygen Delivery Method Room Air Room Air Oxygen Flow Rate (L/min) 12/06/23 00:13 12/06/23 00:49 12/06/23 00:55 Temperature 97.9 F Temperature Source Temporal Pulse Rate 114 H 114 H 114 H Respiratory Rate 31 H 28 H 33 H Respiratory Effort Respiratory Pattern Blood Pressure 146/93 H 153/85 H 153/85 H Blood Pressure Mean 110 107 107 Pulse Ox 92 91 97 Oxygen Delivery Method Room Air Room Air Room Air Oxygen Flow Rate (L/min) 12/06/23 01:00 12/06/23 01:36 12/06/23 01:37 Temperature Temperature Source Pulse Rate 116 H 114 H 113 H Respiratory Rate 36 H 36 H 35 H Respiratory Effort Respiratory Pattern Blood Pressure 171/90 H 157/94 H Blood Pressure Mean 117 115 Pulse Ox 93 89 95 Oxygen Delivery Method Room Air Room Air Nasal Cannula Oxygen Flow Rate (L/min) 2 12/06/23 01:51 12/06/23 01:53 12/06/23 01:53 Temperature 97.7 F L 97.7 F L Temperature Source Temporal Pulse Rate 113 H 113 H 114 H Respiratory Rate 33 H 35 H 31 H Respiratory Effort Respiratory Pattern Blood Pressure 143/94 H 143/94 H 143/94 H Blood Pressure Mean 110 110 110 Pulse Ox 97 96 96 Oxygen Delivery Method Nasal Cannula Nasal Cannula Oxygen Flow Rate (L/min) 2 2 12/06/23 03:00 12/06/23 03:00 Temperature 98.5 F Temperature Source Temporal Pulse Rate 108 H 108 H Respiratory Rate 25 H 36 H Respiratory Effort Respiratory Pattern Blood Pressure 124/108 H 124/108 H Blood Pressure Mean 113 113 Pulse Ox 94 95 Oxygen Delivery Method Nasal Cannula Nasal Cannula Oxygen Flow Rate (L/min) 2 2 Weight Weight: 252 lb 10.396 oz Body Mass Index (BMI) 37.3 Physical Exam Const alert Constitutional Narrative: Patient is obese, tachypneic, lethargic and confused. General Appearance: cooperative Orientation / Consciousness: confused and lethargic HEENT normocephalic, head/scalp atraumatic and hearing grossly normal bilaterally Eyes PERRL and EOMs intact bilaterally Neck no lymphadenopathy and supple Resp Resp Narrative: Diminished breath sounds over the entire Right lung with tachypnea noted. Cardio regular rate and regular rhythm Cardio Narrative: Tachycardia noted at ~110 bpm. GI normal to inspection, nondistended, normoactive bowel sounds, soft to palpation, non-tender and non-distended GI Narrative: Obese. Extremity normal to inspection and full ROM Skin Skin Narrative: Patient has no evidence of jaundice, abscess or rash. Neuro CN's II-XII intact bilaterally and moves all extremities Sensorium / Orientation: awake, alert, oriented to person and oriented to place Psych affect normal Results Medical Records Data Attestation: I reviewed the patient's medical records Lab / Micro Data Attestation: I reviewed the patient's lab results. 12/05/23 23:10 12/05/23 23:10 Labs: Laboratory Results - last 24 hr 12/05/23 22:55: POC Glucose 169 H 12/05/23 23:10: WBC 28.2 H, RBC 5.01, Hgb 14.1, Hct 44.6, MCV 89.0, MCH 28.1, MCHC 31.6 L, RDW Std Deviation 45.1 H, RDW Coeff of Lidia 13.9, Plt Count 351, MPV 11.3, Immature Gran % (Auto) 1.200 H, Neut % (Auto) 82.0 H, Lymph % (Auto) 9.1 L, Childress % (Auto) 6.2, Eos % (Auto) 1.3, Baso % (Auto) 0.2, Absolute Neuts (auto) 23.1 H, Absolute Lymphs (auto) 2.55, Nucleated RBC % 0, Differential Comment SCANNED, Diff Path Review October foll, PT 14.9, INR 1.2, Sodium 136, Potassium 3.9, Chloride 105, Carbon Dioxide 21.0, Anion Gap 10, BUN 26 H, Creatinine 1.50 H, Estim Creat Clear Calc 66.20, Est GFR (MDRD) Af Amer 62, Est GFR (MDRD) Non-Af 51 L, BUN/Creatinine Ratio 17.3, Glucose 180 H, Calcium 9.2, Total Bilirubin 1.10 H, Direct Bilirubin 0.56 H, AST 14 L, ALT 25, Alkaline Phosphatase 157 H, Troponin I High Sens 15, Total Protein 7.8, Albumin 2.9 L, Globulin 4.9 H, Lipase 18 12/06/23 00:42: Lactic Acid 1.9 12/06/23 01:35: Ammonia < 10.0 L Imaging Radiology Impression Chest X-Ray 12/05/23 23:15 IMPRESSION: 1. Patchy opacity right mid and lower lung may be due to consolidation/pneumonia and/or atelectasis. Consider CT for further evaluation. 2. Moderate loculated right pleural effusion. Electronically Signed: Migel Vaz MD at 23:30 EDT , Abdomen/Pelvis CT 12/06/23 00:03 IMPRESSION: 1. No acute abdominal pelvic abnormality. 2. Compressive atelectasis right lower lobe. 3. Moderate loculated right pleural effusion. 4. Coronary artery disease. 5. Fatty liver. Electronically Signed: Migel Vaz MD at 0:55 EDT , ADDENDUM: 12/06/23 0112 IMPRESSION: undefined Brain CT 12/06/23 00:03 IMPRESSION: 1. Mucosal thickening within air-fluid level left maxillary sinus may be due to acute sinusitis. 2. Moderate generalized atrophy. Moderate low density bilaterally in the deep white matter. This likely represents chronic small vessel ischemic changes in the deep white matter. 3. 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 4. Extensive dental and periodontal disease involving the maxilla. Electronically Signed: Migel Vaz MD at 0:56 EDT , Assessment & Plan Assessment/Plan (1) Sepsis: QUALIFIERS: Sepsis type: sepsis due to unspecified organism Sepsis acute organ dysfunction status: with acute organ dysfunction Severe sepsis acute organ dysfunction type: encephalopathy Severe sepsis shock status: without septic shock Qualified Code(s): A41.9 - Sepsis, unspecified organism; R65.20 - Severe sepsis without septic shock; G93.41 - Metabolic encephalopathy (2) Right lower lobe pneumonia: QUALIFIERS: Pneumonia type: due to unspecified organism Qualified Code(s): J18.9 - Pneumonia, unspecified organism (3) Parapneumonic effusion: (4) Respiratory insufficiency: (5) Septic encephalopathy: (6) Obesity (BMI 30-39.9): PLAN: Plan 1. Sepsis with CT scan of the abdomen and pelvis with IV contrast that revealed compressive atelectasis of the Right lower lobe with a moderate loculated Right pleural effusion complicated by clinical signs of sepsis due to suspected parapneumonic effusion with pneumonia and Head CT positive for Left maxillary sinusitis with respiratory rate was 36 breaths/min and tachycardia at 108 bpm with obvious confusion and leukocytosis of 28.2 K with Left shift present on admission and ABG pending at this time to see if this patient will require intubation - Admit to ICU for treatment on the sepsis protocol. Continue empiric IV vancomycin and IV Zosyn begun in the ER and await culture and sensitivity data. Keep patient strict NPO for urgent CT-guided thoracentesis at interventional radiology. 2. Septic Encephalopathy due to #1 - Check UDS, B12, Folate and TAMRA to evaluate for potential reversible causes of confusion. 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 Otherwise, continue supportive care and monitor for improvement. 3. Acute Respiratory Insufficiency arising from #1 & #2 - Wean supplemental oxygen as tolerated. 4. History of tobacco abuse with possible underlying malignancy complicating #1 - Tobacco cessation will be strongly encouraged with Nicotine patch offered to control cravings. 5. Obesity; with BMI of 37.3 this admission with suspected underlying STEFANY adding to the pathology of #1 - #4 - Weight loss will be recommended. Check TSH. 6. Essential hypertension - Hold scheduled antihypertensives until infection outlined in #1 has been neutralized. 7. DM-2; of unknown control - Keep NPO for now. FSBS q. 6 hours plus lowest intensity SSI. Check HgbA1c to objectively evaluate quality of diabetic control. 8. CAD; s/p CT and CABG x 4 - Apparently stable for now. Serialize troponin, check BNP and check echocardiogram to evaluate LVEF. 9. Erectile dysfunction - Noted. 10. Gout - Stable with no evidence of acute flare. 11. OA; with history of knee surgery - Noted. 12. GERD - Start IV Protonix. 13. DVT prophylaxis - SCD's only with impending thoracentesis. Total time: Approximately 75 minutes. Sepsis Attestation Sepsis Alert: Yes Sepsis Attestation: Agree w/Sepsis Date exam was performed: 12/06/23 Time exam was performed: 03:45 Possible Source of Sepsis: Pulmonary Sepsis Organ Dysfunction Criteria Present: New/Unexplained change in mental status Fluid Resuscitation Fluid resuscitation indicated?: Yes Fluid Resuscitation ordered: 30 ml/kg fluid bolus ordered Amount of fluid ordered: 3 Reason for lesser fluid bolus:: Concern for fluid overload Sepsis Note Date exam was performed: 12/06/23 Time exam was performed: 07:00 Sepsis Attestation: Sepsis re-evaluation was performed Response to fluids: Fluid responsive hypotension Charges/Coding Visit Charges Inpatient E&M: 48791 Init Hosp L3
[2023-12-06] MEDS: Morphine 4 MG/ML Syringe IV (03:26)
--- NOTE | 2023-12-06 03:54 | ECHOCS_ITS ---
Version 2 Reason For Study: Loculated Rt Pleural Effusion Procedure This was a 2D Doppler, Color Flow transthoracic echocardiogram. Contrast injection was performed. Exam performed portable in ICU/CCU. Left Ventricle Normal LV size. Left ventricular systolic function is normal. The left ventricular ejection fraction is 55 %. Stage 1 diastolic dysfunction. No regional wall motion abnormalities noted. Right Ventricle Normal right ventricle. Normal systolic function. Atria Normal left atrium. Mitral Valve Mitral valve not well visualized. Tricuspid Valve The tricuspid valve is not well visualized. Mild (1+) tricuspid valve insufficiency. Pulmonary artery systolic pressure is 35 mmHg. Aortic Valve The aortic valve is not well visualized. Pericardium/Pleural No pericardial effusion. Medication Diluted definity 2ml given slow IV push to enhance endocardial definition. MMode/2D Measurements & Calculations LVIDd: 4.3 cm IVSd: 1.3 cm Ao root diam: 3.2 cm LVIDs: 3.1 cm LVPWd: 1.3 cm RVDd: 4.6 cm FS: 27.7 % LAV(MOD-bp): 37.3 ml LA A4 area: 18.0 cm2 LA dimension(2D): 4.2 cm LAV(MOD-bp) Indexed: 16.4 ml/m2 LAV(MOD-sp2): 33.5 ml LAV(MOD-sp4): 42.8 ml RA A4 area: 15.1 cm2 TAPSE: 1.6 cm Time Measurements MV dec time: 0.22 sec Doppler Measurements & Calculations MV E max jam: 71.2 cm/sec Lat Peak E' Jam: 11.9 cm/sec Med Peak E' Jam: 6.9 cm/sec MV A max jam: 91.1 cm/sec E/E' lat: 6.0 E/E' med: 10.3 MV E/A: 0.78 MV dec slope: 317.5 cm/sec2 Ao V2 max: 143.1 cm/sec LV V1 max: 125.4 cm/sec Ao max P.2 mmHg LV V1 max P.3 mmHg Ao V2 mean: 102.6 cm/sec Ao mean P.7 mmHg Ao V2 VTI: 23.6 cm PA V2 max: 110.1 cm/sec TR max jam: 278.9 cm/sec TR max P.1 mmHg ECHO/Echo Complete W/ Contrast Interpretation Summary Normal LV size. Left ventricular systolic function is normal. The left ventricular ejection fraction is 55 %. Stage 1 diastolic dysfunction. Contrast injection was performed. Ordering Physician: Jose Galeana Referring Physician: Clovis Lynn Performed By: Ingrid Malcolm RDCS, RVT
[2023-12-06] MEDS: 0.9% Saline Lock 10 ML Syringe IV ×2 (05:59→10:30)
[2023-12-06 06:04] LABS: Blood Gas Specimen Type VEN; O2 Delivery Device Cannula; SITE Not entered; VBG BASE EXCESS -3 mmol/L (-1.0-3.5); VBG Bicarbonate 24 mmol/L (22-26); VBG PO2 24 mmHg (25-40); VBG SO2 34 % (50-70); VBG TCO2 26 mmol/L (23-33); VBG pCO2 52.5 mmHg (41-51); VBG pH 7.27 (7.32-7.42)
[2023-12-06 06:18] LABS: Bedside Glucose 139 mg/dL (74-106)
[2023-12-06] MEDS: hydrALAZINE 20 MG/ML Vial 10 MG IV (06:26)
--- NOTE | 2023-12-06 06:32 | PCM.RX.CS ---
Consult Antibiotic Management Pharmacy has been consulted to manage selected antibiotic: Vancomycin Type of Intervention Type of Consult: New start Labs Labs: Sodium 136 mmol/L (136-145) 12/05/23 23:10 Potassium 3.9 mmol/L (3.5-5.1) 12/05/23 23:10 Chloride 105 mmol/L (98-107) 12/05/23 23:10 Carbon Dioxide 21.0 mmol/L (21.0-32.0) 12/05/23 23:10 Anion Gap 10 (5-15) 12/05/23 23:10 BUN 26 mg/dL (7-18) H 12/05/23 23:10 Creatinine 1.50 mg/dL (0.70-1.30) H 12/05/23 23:10 Est GFR (MDRD) Af Amer 62 mL/min (>60) 12/05/23 23:10 Est GFR (MDRD) Non-Af 51 mL/min (>60) L 12/05/23 23:10 BUN/Creatinine Ratio 17.3 RATIO (10-20) 12/05/23 23:10 Glucose 180 mg/dL (74-106) H 12/05/23 23:10 Dosing Weight Weight used for dosin.4 kg Estimated Creatinine Clearance Estimated Creatinine Clearance: 66.2 Pharmacy Plan for Drug Dosing Pharmacy Plan for Drug Dosing: Pharmacy Service will continue to monitor and adjust dosing as required. 1750 IN ER, 1500 Q12H TROUGH PRIOR TO 4TH DOSE Follow-Up Labs Follow-Up Labs: Trough: Vancomycin Date/Time Labs Ordered Labs to be done on [date and time ordered]: 12/06 @ 1300
[2023-12-06 08:07] LABS: Alcohol, Blood (Medical)-Serum < 3.0 mg/dL
[2023-12-06 08:22] LABS: Lactic Acid 1.1 mmol/L (0.4-1.9)
[2023-12-06 08:25] LABS: BNP,B-Type NATRIURETIC PEPTIDE 47.2 pg/mL (0-100)
[2023-12-06 08:25] LABS: Amphetamine Urine VISTA POSITIVE (<1000 ng/mL); Barbiturate Urine VISTA NEGATIVE (< 200 ng/mL); Benzodiazepine Urine VISTA NEGATIVE (< 200 ng/mL); Cocaine Urine VISTA NEGATIVE (< 300 ng/mL); Ecstacy Urine VISTA NEGATIVE (< 500 ng/mL); Methadone Urine VISTA NEGATIVE (< 300 ng/mL); PCP Urine VISTA NEGATIVE (< 25 ng/mL); THC Urine VISTA POSITIVE (< 50 ng/mL); Vista UDS pH Range 5
[2023-12-06 08:40] LABS: Vitamin B12 380 pg/mL (211-911)
[2023-12-06 08:52] LABS: Thyroid Stim Hormone (TSH) 1.08 uIU/mL (0.358-3.74); Troponin-I HS 18 pg/mL (3.0-78.0)
--- NOTE | 2023-12-06 09:00 | RAD_ITS ---
STUDY: X-RAY CHEST REASON FOR EXAM: Male, 58 years old. Moderate Right Pleural Effusion with PNA. TECHNIQUE: Single AP portable view of the chest. COMPARISON: Comparison is made with prior study dated December 05, 2023. FINDINGS: EKG electrodes are seen. Elevation of the right hemidiaphragm. Pleural-parenchymal changes at the right lung base. This has improved. The left lung is unremarkable. Sternal cerclage wires are present from a prior sternotomy. Normal mediastinum and darrion. Normal visualized pulmonary arteries. Normal visualized aortic arch and descending thoracic aorta. Normal visualized thoracic spine. Normal visualized ribs, clavicles, and shoulders. There is no demonstrated abnormality of the visualized soft tissue structures of the upper abdomen. RAD/Chest 1 View (Portable) IMPRESSION: Pleural parenchymal changes at the right lung base. There has been improvement as compared to prior study. Electronically Signed: Kian Johns MD at 13:23 EDT ,
[2023-12-06 09:04] LABS: Base Excess -7 mmol/L (-2 to +2); Bicarbonate 18.4 mmol/L (22-26); Blood Gas Specimen Type ART; Mode Not entered; O2 Delivery Device BiPAP; PEEP 8; PO2 93 mmHG (75-100); SITE Not entered; SO2 97 % (95-99); Total Carbon Dioxide 19 mmol/L; pCO2 32.3 mmHg (35-45); pH 7.36 (7.35-7.45)
[2023-12-06 09:14] LABS: Bedside Glucose 123 mg/dL (74-106)
[2023-12-06 09:28] LABS: LDH 208 U/L (87-241)
[2023-12-06] MEDS: LORazepam 2 MG/ML Syringe 1 MG IV (09:44)
[2023-12-06] MEDS: Labetalol (Compound) 20 MG/4 ML SYRINGE IV (09:47)
[2023-12-06] MEDS: Fluticasone 0.05% 1 SPRAY NASAL.SRY NASAL ×2 (10:30→21:03)
[2023-12-06] MEDS: Pantoprazole Sodium 40 MG in 0.9% Normal Saline (100mL MB+) 100 ML 330 MG IV (10:30)
[2023-12-06 10:44] LABS: Pathologist Review Reviewed
--- NOTE | 2023-12-06 11:50 | CASEMGMT ---
RN CM Face to Face with and patient for initial transition planning/care coordination assessment. RN CM introduced self and role at [facility]. Patient lying in bed on continuous bipap and unable to participate in assessment. , Fani willing to participate in assessment and is able to answer all questions appropriately. Care providers, pharmacy, and demographics verified. PCP: Shane Specialists: none Preferred Pharmacy: [facility] Insurance: [employer] Prescription Benefit: yes Living Will/HPOA: none LNOK: Living Arrangements: Patient lives with in a 2nd floor apartment with 16 steps and railing to enter. Per , patient was independent and able to ambulate stairs at home. Transportation: [employer] or [employer] DME/HHC: denies DME in the home. No previous HHC or SNF wishes for patient to discharge home, will monitor for home oxygen and HHC. Will monitor progress with therapy. states she has no further needs or concerns at this time. CM to follow for discharge planning needs that may arise. Disposition Plan: TBD pending course of treatment and progress with therapy. Remedios GARCIA, RN, CM
[2023-12-06 11:53] LABS: Hemoglobin A1c 8.5 % (3.8-5.6)
[2023-12-06] MEDS: Vancomycin HCl 1,500 MG in 0.9% Normal Saline (500mL Bag) 500 ML 250 MG IV (12:39)
[2023-12-06] MEDS: Insulin Lispro 100 UNIT/ML INSULN.PEN SC ×2 (12:41→23:54)
[2023-12-06 12:47] LABS: Bedside Glucose 182 mg/dL (74-106)
--- NOTE | 2023-12-06 12:52 | CON.PCM.CC_ITS ---
HPI Consult Data Date of Consult: 12/06/23 HPI Narrative HPI Narrative: BOBBY HARRIS, is a 58 M who presents [facility] Medical History Anxiety Myocardial infarct Gout Diabetes Home Medications ?Medication ?Instructions ?Recorded ?Last Taken ?Type allopurinol 300 mg tablet 300 mg PO DAILY 12/05/23 Unknown History aspirin 325 mg tablet 325 mg PO DAILY 12/05/23 Unknown History atorvastatin 40 mg tablet 40 mg PO DAILY 12/05/23 Unknown History blood sugar diagnostic (True 12/05/23 Unknown History Metrix Glucose Test Strip) cyclobenzaprine 10 mg tablet 10 mg PO BID 12/05/23 Unknown History fluticasone propionate 50 1 spray intranasal BID 12/05/23 Unknown History mcg/actuation nasal spray,suspension glimepiride 1 mg tablet 2 mg PO DAILY 12/05/23 Unknown History glimepiride 2 mg tablet 2 mg PO DAILY 12/05/23 Unknown History lancets 30 gauge (Unilet Super 12/05/23 Unknown History Thin Lancets) lorazepam 2 mg tablet 2 mg PO BID 12/05/23 Unknown History metformin 850 mg tablet 850 mg PO BID 12/05/23 Unknown History omeprazole 40 mg capsule,delayed 40 mg PO DAILY 12/05/23 Unknown History release oxycodone-acetaminophen 5 mg-325 1 tab PO 4X/DAY PRN PRN pain 12/05/23 Unknown History mg tablet pregabalin 75 mg capsule 75 mg PO BID 12/05/23 Unknown History sildenafil 100 mg tablet 100 mg PO DAILY PRN intercourse 12/05/23 Unknown History Allergy/AdvReac Type Severity Reaction Status Date / Time No Known Allergies Allergy Verified 12/06/23 08:50 Surgical History H/O knee surgery S/P CABG x 4 Social History household members: spouse Smoking Status: Current every day smoker tobacco type: cigarettes alcohol intake: current substance use type: does not use Objective Data Objective Data Vital Signs: Vital Signs Last response 3 Temperature 37.4 C H 12/06/23 08:00 Temperature Source Temporal 12/06/23 08:00 Pulse Rate 99 12/06/23 11:00 Respiratory Rate 36 H 12/06/23 11:00 Respiratory Effort Normal, Non-Labored 12/06/23 05:00 Respiratory Depth Normal 12/06/23 05:00 Respiratory Pattern Normal 12/06/23 08:23 Blood Pressure 160/89 H 12/06/23 11:00 Blood Pressure Mean 112 12/06/23 11:00 Blood Pressure Source Monitor 12/06/23 11:00 Blood Pressure Position Semi-Fowlers 12/06/23 11:00 Blood Pressure Location Right Arm 12/06/23 11:00 Pulse Ox 96 12/06/23 11:00 Oxygen Delivery Method Bi-pap 12/06/23 11:00 Oxygen Flow Rate (L/min) 2 12/06/23 08:24 Fraction of Inspired Oxygen (FIO2) 40 12/06/23 11:00 I&O: I&O Last 24 Hours 3 12/05/23 12/06/23 12/06/23 23:59 11:59 23:59 Intake Total 0 / 0 4745 / 4745 Output Total 300 / 300 Balance 0 / 0 4445 / 4445 I&O: Total Stay 3 12/05/23 22:47 thru 12/06/23 10:50 Intake Total 4745 Output Total 300 Balance 4445 Current Meds Ordered / Administered: Current meds ordered / Administered 3 Generic Name Dose Route Start Last Admin Trade Name Freq PRN Reason Stop Dose Admin Dextrose 0 gm 12/06/23 04:30 Dextrose 50%-Water 25 Gm/50 Ml Disp.Syrin IV X1 PRN Hypoglycemia Protocol Fluticasone Propionate 1 spray 12/06/23 10:00 12/06/23 10:30 Fluticasone 0.05% 1 Clifford Nasal.Sry NASAL 1 spray BID MARI Administration Glucagon 1 mg 12/06/23 04:30 Glucagon 1 Mg/Ml Syringe IM X1 PRN Hypoglycemia Vancomycin IV-PHARMACY TO DOSE 500 mls @ 250 mls/hr 12/06/23 04:30 1 each/ Sodium Chloride IV X1 PRN Rx to Dose Protocol Piperacillin Sod/Tazobactam 50 mls @ 12.5 mls/hr 12/06/23 06:00 12/06/23 10:25 Sod 3.375 gm/ Sodium Chloride IV Infused Q8 MARI Infusion Pantoprazole Sodium 40 mg/ 110 mls @ 330 mls/hr 12/06/23 10:00 12/06/23 10:50 Sodium Chloride IV Infused DAILY MARI Infusion Vancomycin HCl 1,500 mg/ 530 mls @ 250 mls/hr 12/06/23 13:00 12/06/23 12:39 Sodium Chloride IV 250 mls/hr Q12H MARI Administration Insulin Human Lispro 0 unit 12/06/23 06:00 12/06/23 12:41 Insulin Lispro 100 Unit/Ml Insuln.Pen SC 1 u Q6 MARI Administration Protocol Labetalol HCl 20 mg 12/06/23 10:26 Labetalol (Compound) 20 Mg/4 Ml Syringe IV Q4H PRN PRN SBP> 180 Protocol Sodium Chloride 10 - 40 ml 12/06/23 04:42 12/06/23 10:30 0.9% Saline Lock 10 Ml Syringe IV 20 ml UD PRN Administration SALINE FLUSH Vancomycin Protocol 1 lab 12/07/23 11:00 Vancomycin Trough/Random Due MC 12/07/23 15:00 DAILY [facility] Lab / Micro Data 12/05/23 23:10 12/05/23 23:10 Labs: Laboratory Results - last 24 hr 12/05/23 22:55: POC Glucose 169 H 12/05/23 23:10: WBC 28.2 H, RBC 5.01, Hgb 14.1, Hct 44.6, MCV 89.0, MCH 28.1, M CHC 31.6 L, RDW Std Deviation 45.1 H, RDW Coeff of Lidia 13.9, Plt Count 351, MPV 11.3, Immature Gran % (Auto) 1.200 H, Neut % (Auto) 82.0 H, Lymph % (Auto) 9.1 L , Cabell % (Auto) 6.2, Eos % (Auto) 1.3, Baso % (Auto) 0.2, Absolute Neuts (auto) 23.1 H, Absolute Lymphs (auto) 2.55, Nucleated RBC % 0, Differential Comment SCANNED, Diff Path Review Reviewed, PT 14.9, INR 1.2, Sodium 136, Potassium 3.9, Chloride 105, Carbon Dioxide 21.0, Anion Gap 10, BUN 26 H, Creatinine 1.50 H, Estim Creat Clear Calc 66.20, Est GFR (MDRD) Af Amer 62, Est GFR (MDRD) Non-Af 51 L, BUN/Creatinine Ratio 17.3, Glucose 180 H, Calcium 9.2, Total Bilirubin 1.10 H, Direct Bilirubin 0.56 H, AST 14 L, ALT 25, Alkaline Phosphatase 157 H, Troponin I High Sens 15, Total Protein 7.8, Albumin 2.9 L, Globulin 4.9 H, Lipase 18 12/06/23 00:42: Lactic Acid 1.9, Ethyl Alcohol < 3.0 12/06/23 00:57: Urine Opiates Screen NEGATIVE, Urine Methadone Screen NEGATIVE, Ur Barbiturates Screen NEGATIVE, Ur Phencyclidine Scrn NEGATIVE, Ur Amphetamines Screen POSITIVE H, MDMA (Ecstasy) Screen NEGATIVE, U Benzodiazepines Scrn NEGATIVE, Urine Cocaine Screen NEGATIVE, U Cannabinoids Screen POSITIVE H, Ur Drug Screen Comment 12/06/23 01:35: Ammonia < 10.0 L 12/06/23 04:50: Vitamin B12 380 12/06/23 05:45: Hemoglobin A1c 8.5 H, Lactic Acid 1.1, Lactate Dehydrogenase 208, Troponin I High Sens 18, B-Natriuretic Peptide 47.2, Folate 13.10, TSH 1.08 12/06/23 05:55: POC Glucose 139 H 12/06/23 08:55: POC Glucose 123 H 12/06/23 12:21: POC Glucose 182 H Micro: Microbiology 12/06/23 00:57 Urine, Clean Catch Legionella Antigen - Final 12/06/23 00:57 Urine, Clean Catch Streptococcus pneumoniae Antigen (M - Final ABG Data ABG results: ABG 12/06/23 12/06/23 06:00 09:00 Specimen Type RASHAD ART Sample Site Not entered Not entered pH 7.36 Bicarbonate Actual 18.4 L Total CO2 19 Base Excess -7 L O2 Saturation 97 O2 % 2.0 40.0 ABG pCO2 32.3 L ABG pO2 93 VBG pH 7.27 L VBG pO2 24 L VBG HCO3 24 VBG Total CO2 26 VBG O2 Sat (Calc) 34 L VBG Base Excess -3 L POC Mix VBG pCO2 Pt Tmp 52.5 H O2 Delivery Device Cannula BiPAP Vent Mode Not entered POC PEEP 8 Imaging Radiology Impression Chest X-Ray 12/05/23 23:15 IMPRESSION: 1. Patchy opacity right mid and lower lung may be due to consolidation/pneumonia and/or atelectasis. Consider CT for further evaluation. 2. Moderate loculated right pleural effusion. Electronically Signed: Migel Vaz MD at 23:30 EDT , Abdomen/Pelvis CT 12/06/23 00:03 IMPRESSION: 1. No acute abdominal pelvic abnormality. 2. Compressive atelectasis right lower lobe. 3. Moderate loculated right pleural effusion. 4. Coronary artery disease. 5. Fatty liver. Electronically Signed: Migel Vaz MD at 0:55 EDT , ADDENDUM: 12/06/23 0112 IMPRESSION: undefined Brain CT 12/06/23 00:03 IMPRESSION: 1. Mucosal thickening within air-fluid level left maxillary sinus may be due to acute sinusitis. 2. Moderate generalized atrophy. Moderate low density bilaterally in the deep white matter. This likely represents chronic small vessel ischemic changes in the deep white matter. 3. 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 4. Extensive dental and periodontal disease involving the maxilla. Electronically Signed: Migel Vaz MD at 0:56 EDT , Chest CTA 12/06/23 00:03 IMPRESSION: 1. No pulmonary embolism or aortic dissection. 2. Mild right paratracheal and subcarinal lymphadenopathy. 3. Moderate loculated right pleural effusion with compressive atelectasis of the right lower lobe. 4. Coronary artery disease. Electronically Signed: Migel Vaz MD at 1:04 EDT , Assessment and Plan . Assessment and plan: 58 yo obese male smoker admitted 12/05/23 w/ confusion and altered LOC. Noted tachycardia and tachypnea on presentation. CT brain --> NAP Lab significant for leukocytosis, creatinine 1.5, UDS (+) for THC and amphetamine, LA WNL Chest imaging reveals a moderate sized complicated right pleural effusion. He has received IV ABX and has been admitted to the ICU. He is currently supported w/ NIPPV - RR around 30 BPM, pressure 12/8, FiO2 0.35 He is responsive, but is hypoactive. I am told that a thoracentesis is planned in radiology later today. PHYSICAL EXAM GEN NAD, hypoactive VS as above HEENT NIV NECK obese COR RRR CHEST decreased on right ABD soft, obese EXT minimal edema SKIN w/d JEAN PIERRE NF ASSESSMENT 1. Acute respiratory failure requiring NIV support 2. Delirium / encephalopathy 3. Complicated right pleural effusion - suspect parapneumonic 4. Amphetamine use 5. Renal insufficiency 6. DM / ASCVD / h/o CABG 7. Obesity 8. Tobacco use TREATMENT PLAN -NIV support as needed to reduce WOB -supplemental O2 as needed -continue ABX -thoracentesis is pending -after review of the CT scan, I suspect he is going to require evaluation by CVTS and likely operative intervention -VTE prophylaxis -sq insulin as needed -follow renal function -precedex as needed for analgesia/anxiolysis Critical Care Time: 60 min The entirety of this encounter was done via Telemedicine
[2023-12-06] MEDS: dexMEDEtomidine 400 MCG in 0.9% Normal Saline (100mL Bag) 96 ML 14.2 MCG CONT INF ×2 (14:45→21:03)
[2023-12-06 17:10] LABS: Bedside Glucose 147 mg/dL (74-106)
[2023-12-07] VITALS (31 sets, daily range): BP systolic 124–192; BP diastolic 54–106; PULSE 67–110; RESP 14–43; TEMP 36.4–37.1; O2SAT 91–97; BMI 37.5
[2023-12-07 00:17] LABS: Bedside Glucose 170 mg/dL (74-106)
[2023-12-07] MEDS: Morphine 2 MG/ML Syringe IV (00:39)
[2023-12-07] MEDS: CHLORHEXIDINE GLUC 2% CLOTH 1 EACH TOWELETTE TOPICAL (00:39)
[2023-12-07] MEDS: 0.9% Saline Lock 10 ML Syringe IV ×3 (00:40→10:36)
[2023-12-07] MEDS: Dexmedetomidine 1,000 mcg in 0.9% NS 240 mL 22.7 MCG CONT INF (02:00)
[2023-12-07] MEDS: Vancomycin HCl 1,500 MG in 0.9% Normal Saline (500mL Bag) 500 ML 250 MG IV (02:01)
[2023-12-07 04:40] LABS: Absolute Lymphocyte Count 1.46 X10^3/uL (0.83-4.51); Absolute Neutrophil Count 14.8 X10^3/uL (2.0-7.7); Basophil# 0.06 X10^3/uL; Basophil% 0.3 % (0-1); Eosinophil# 0.08 X10^3/uL; Eosinophils% 0.4 % (0-5); Hematocrit 34.5 % (40-54); Lymphocyte # 1.46 X10^3/ul (0.83-4.51); Lymphocyte % 8.1 % (19-41); Mean Corp Hgb Conc 31.9 g/dL (32-36); Mean Corpuscular Hgb 28.2 pg (27.0-32.0); Mean Corpuscular Volume 88.5 fL (80-94); Mean Platelet Vol. 10.2 fl (6.2-12.0); Monocyte# 1.57 X10^3/uL; Monocyte% 8.7 % (0-10); NRBC Flagged by Analyzer 0 % (0-5); Neutrophil # 14.78 X10^3/uL (2.7-7.7); Neutrophil % 81.6 % (47-70); POSITIVE DIFFERENTIAL YES; Platelet Count 336 K/mm3 (150-450); RBC Distribution Width CV 14.2 % (11.6-14.6); RBC Distribution Width SD 45.6 fl (35.1-43.9); White Blood Count 18.1 K/mm3 (4.4-11.0)
[2023-12-07] MEDS: Piperacil/Tazobactam 3.375 GM in 0.9% Normal Saline (50mL MB+) 50 ML IV ×3 (04:40→21:24)
[2023-12-07] MEDS: Insulin Lispro 100 UNIT/ML INSULN.PEN SC ×4 (04:41→20:15)
[2023-12-07 04:54] LABS: Differential Indicated SCAN CRITERIA MET
[2023-12-07 04:56] LABS: ALB/GLOB Ratio 0.5 RATIO (0.9-2.4); AST(SGOT) 11 U/L (15-37); Alanine Aminotransfer ALT/SGPT 15 U/L (16-61); Albumin, Serum 1.9 g/dL (3.2-5.0); Alkaline Phosphatase 115 U/L (45-117); Anion Gap 4 (5-15); BUN 23 mg/dL (7-18); BUN/Creat Ratio 18.4 RATIO (10-20); Calcium,Total 8.2 mg/dL (8.5-10.1); Chloride 111 mmol/L (98-107); Creatinine, Serum 1.25 mg/dL (0.70-1.30); EST Glomerular Filtration Rate 63 mL/min (>60); Est Glom Filt Rate - Afr Amer 76 mL/min (>60); Estimated Creatinine Clearance 79.51 ml/min; Globulin 4.2 g/dL (2.2-4.2); Glucose 183 mg/dL (74-106); Potassium 4.2 mmol/L (3.5-5.1); Protein, Total 6.1 g/dL (6.4-8.2); Sodium Level 138 mmol/L (136-145)
[2023-12-07 05:03] LABS: Bedside Glucose 153 mg/dL (74-106)
[2023-12-07 05:51] LABS: Differential Comment SCANNED
--- NOTE | 2023-12-07 08:19 | PN.CC_ITS ---
Assessment & Plan Assessment/Plan (1) Right lower lobe pneumonia: QUALIFIERS: Pneumonia type: due to unspecified organism Qualified Code(s): J18.9 - Pneumonia, unspecified organism PLAN: Plan RECOMMENDATIONS: 1. Wean from BiPAP to nasal cannula oxygen. 2. Wean Precedex as tolerated. 3. Continue empiric antibiotics. 4. Ultrasound-guided thoracentesis. 5. Continue sliding scale insulin coverage. IMPRESSIONS: 1. Acute respiratory failure Appears to be secondary to right lower lobe pneumonia with associated pleural effusion, with concern for parapneumonic etiology. The patient appears to have stabilized from a respiratory perspective on BiPAP therapy. Plan to wean from PAP therapy to nasal cannula oxygen today as tolerated. There are tentative plans to proceed with ultrasound-guided thoracentesis. In the interim, continue empiric antibiotics as ordered. Encourage incentive spirometer use and mobilize patient as tolerated. 2. Encephalopathy Most likely secondary to presenting sepsis. The patient's mentation is baseline this morning. He is alert and appropriately interactive. The patient is being maintained on Precedex due to agitation in the setting of a toxicology screen which was positive for amphetamines. Will plan to wean Precedex over the course of the day as tolerated. 3. Sepsis The patient presented to the hospital with sepsis due to probable pneumonia with acute sepsis related organ dysfunction as evidenced by altered mental status and acute respiratory failure requiring noninvasive positive pressure ventilatory support. The patient has been maintained on appropriate broad-spectrum antimicrobial therapy, pending infectious workup. He remains otherwise hemodynamically stable. 4. History of heart failure with preserved ejection fraction/coronary artery disease/obesity/substance dependency/diabetes mellitus Complicates care, management, recovery and prognosis. Continue supportive measures as noted above. This note was generated with [employer] dictation software. It may contain incorrect words, spelling, and punctuation that were not noted in checking the note before signing. Subjective Subjective The patient was seen and examined at the bedside this morning. Events from the last 24 hours have been reviewed. The patient is currently afebrile, hemodynamically stable and maintaining appropriate oxygen saturations on BiPAP currently with an FiO2 of 30%. The patient appears alert and is calm. He is currently being maintained on Precedex. There are plans for ultrasound-guided thoracentesis today. White count is elevated at 18,000. Objective Data Objective Data The patient's most recent lab work, culture data and imaging studies have all been personally reviewed. Surface echocardiogram demonstrated stage I diastolic dysfunction with an ejection fraction of 55%. Pulmonary artery systolic pressure was estimated to be 35 mmHg. Blood and urine cultures are pending. Vital Signs: Vital Signs Temp Pulse Resp BP Pulse Ox O2 Del Method O2 Flow Rate 98.8 F 73 32 H 154/94 H 95 Bi-pap 2 12/07/23 08:00 12/07/23 08:00 12/07/23 08:00 12/07/23 08:00 12/07/23 08:00 12/07/23 08:00 12/06/23 08:24 FiO2 30 12/07/23 08:00 Oxygen Flow Rate (L/min) 2 Oxygen Delivery Method Bi-pap Weight: 253 lb 1.451 oz Body Mass Index (BMI) 37.5 Intake & Output: Intake and Output for Last 24 Hours 12/05/23 12/06/23 12/07/23 23:59 23:59 23:59 Intake Total 0 / 0 5442.15 / 5456.35 750.96 / 750.96 Output Total 850 / 1150 470 / 470 Balance 0 / 0 4592.15 / 4306.35 280.96 / 280.96 Lab / Micro Data Attestation: I reviewed the patient's lab results. 12/07/23 04:33 12/07/23 04:33 Labs: Laboratory Results - last 24 hr 12/05/23 23:10: Diff Path Review Reviewed 12/06/23 00:57: Urine Opiates Screen NEGATIVE, Urine Methadone Screen NEGATIVE, Ur Barbiturates Screen NEGATIVE, Ur Phencyclidine Scrn NEGATIVE, Ur Amphetamines Screen POSITIVE H, MDMA (Ecstasy) Screen NEGATIVE, U Benzodiazepines Scrn NEGATIVE, Urine Cocaine Screen NEGATIVE, U Cannabinoids Screen POSITIVE H 12/06/23 04:50: Vitamin B12 380 12/06/23 05:45: Hemoglobin A1c 8.5 H, Lactic Acid 1.1, Lactate Dehydrogenase 208, Troponin I High Sens 18, B-Natriuretic Peptide 47.2, Folate 13.10, TSH 1.08 12/06/23 08:55: POC Glucose 123 H 12/06/23 12:21: POC Glucose 182 H 12/06/23 16:50: POC Glucose 147 H 12/06/23 23:50: POC Glucose 170 H 12/07/23 04:33: WBC 18.1 H, RBC 3.90 L, Hgb 11.0 L, Hct 34.5 L, MCV 88.5, MCH 28.2, MCHC 31.9 L, RDW Std Deviation 45.6 H, RDW Coeff of Lidia 14.2, Plt Count 336, MPV 10.2, Immature Gran % (Auto) 0.900, Neut % (Auto) 81.6 H, Lymph % (Auto) 8.1 L, [place]t % (Auto) 8.7, Eos % (Auto) 0.4, Baso % (Auto) 0.3, Absolute Neuts (auto) 14.8 H, Absolute Lymphs (auto) 1.46, Nucleated RBC % 0, Differential Comment SCANNED, Diff Path Review October, Sodium 138, Potassium 4.2, Chloride 111 H, Carbon Dioxide 23.0, Anion Gap 4 L, BUN 23 H, Creatinine 1.25, Estim Creat Clear Calc 79.51, Est GFR (MDRD) Af Amer 76, Est GFR (MDRD) Non-Af 63, BUN/Creatinine Ratio 18.4, Glucose 183 H, Calcium 8.2 L, Total Bilirubin 1.20 H, AST 11 L, ALT 15 L, Alkaline Phosphatase 115, Total Protein 6.1 L, Albumin 1.9 L, Globulin 4.2, Albumin/Globulin Ratio 0.5 L 12/07/23 04:38: POC Glucose 153 H Micro: Microbiology 12/06/23 16:54 Mucosa - Nasopharyngeal SARS-CoV-2, Influenza & RSV (PCR) - Final 12/06/23 00:57 Urine, Clean Catch Legionella Antigen - Final 12/06/23 00:57 Urine, Clean Catch Streptococcus pneumoniae Antigen (M - Final ABG Data ABG results: ABG 12/06/23 09:00 Specimen Type ART Sample Site Not entered pH 7.36 Bicarbonate Actual 18.4 L Total CO2 19 Base Excess -7 L O2 Saturation 97 O2 % 40.0 ABG pCO2 32.3 L ABG pO2 93 O2 Delivery Device BiPAP Vent Mode Not entered POC PEEP 8 Radiography Diagnostic Testing: Radiology Impression Echocardiogram 12/06/23 03:54 Interpretation Summary Normal LV size. Left ventricular systolic function is normal. The left ventricular ejection fraction is 55 %. Stage 1 diastolic dysfunction. Contrast injection was performed. Ordering Physician: Jose Galeana Referring Physician: Clovis Lynn Performed By: Ingrid Malcolm, RDCS, RVT Chest X-Ray 12/06/23 09:00 IMPRESSION: Pleural parenchymal changes at the right lung base. There has been improvement as compared to prior study. Electronically Signed: Kian Johns MD at 13:23 EDT , Physical Exam Const alert and no apparent distress Constitutional Narrative: Currently resting comfortably in bed with BiPAP in place. General Appearance: cooperative HEENT normocephalic and head/scalp atraumatic Eyes PERRL, EOMs intact bilaterally and conjunctivae normal Neck supple General: trachea midline Chest inspection of chest normal Resp normal respiratory effort Auscultation: diminished lung sounds; Negative for rales, rhonchi or wheezes Cardio regular rate and regular rhythm GI normal to inspection, nondistended, normoactive bowel sounds Extremity no clubbing, cyanosis or edema Skin no rashes or lesions noted Neuro CN's II-XII intact bilaterally and no focal motor deficits Psych cooperative Charges/Coding Visit Charges Inpatient E&M: 62045 Subs Hosp L3
[2023-12-07] MEDS: Fluticasone 0.05% 1 SPRAY NASAL.SRY NASAL ×2 (08:27→20:12)
[2023-12-07] MEDS: Pantoprazole Sodium 40 MG in 0.9% Normal Saline (100mL MB+) 100 ML 330 MG IV (08:27)
--- NOTE | 2023-12-07 09:05 | PN.HOSP_ITS ---
Subjective Subjective Has remained stable on BiPAP, still confused. White count is improving. Due to miscommunication no thoracentesis was done yesterday, order is in and hopefully can be performed today Objective Data Objective Data Vital Signs: Vital Signs Temp Pulse Resp BP Pulse Ox O2 Del Method O2 Flow Rate 98.8 F 73 32 H 154/94 H 95 Nasal Cannula 3 12/07/23 08:00 12/07/23 08:00 12/07/23 08:00 12/07/23 08:00 12/07/23 08:00 12/07/23 08:00 12/07/23 08:00 FiO2 30 12/07/23 08:00 Oxygen Flow Rate (L/min) 3 Oxygen Delivery Method Nasal Cannula Weight: 253 lb 1.451 oz Body Mass Index (BMI) 37.5 Intake & Output: Intake and Output for Last 24 Hours 12/06/23 12/07/23 12/08/23 03:59 03:59 03:59 Intake Total 1050 / 1050 4522.31 / 4545.01 803.5 / 803.5 Output Total 1150 / 1150 170 / 170 Balance 1050 / 1050 3372.31 / 3395.01 633.5 / 633.5 Lab / Micro Data 12/07/23 04:33 12/07/23 04:33 Labs: Laboratory Results - last 24 hr 12/05/23 23:10: Diff Path Review Reviewed 12/06/23 05:45: Hemoglobin A1c 8.5 H, Lactate Dehydrogenase 208 12/06/23 08:55: POC Glucose 123 H 12/06/23 12:21: POC Glucose 182 H 12/06/23 16:50: POC Glucose 147 H 12/06/23 23:50: POC Glucose 170 H 12/07/23 04:33: WBC 18.1 H, RBC 3.90 L, Hgb 11.0 L, Hct 34.5 L, MCV 88.5, MCH 28.2, MCHC 31.9 L, RDW Std Deviation 45.6 H, RDW Coeff of Lidia 14.2, Plt Count 336, MPV 10.2, Immature Gran % (Auto) 0.900, Neut % (Auto) 81.6 H, Lymph % (Auto) 8.1 L, Josephine % (Auto) 8.7, Eos % (Auto) 0.4, Baso % (Auto) 0.3, Absolute Neuts (auto) 14.8 H, Absolute Lymphs (auto) 1.46, Nucleated RBC % 0, Differential Comment SCANNED, Diff Path Review October, Sodium 138, Potassium 4.2, Chloride 111 H, Carbon Dioxide 23.0, Anion Gap 4 L, BUN 23 H, Creatinine 1.25, Estim Creat Clear Calc 79.51, Est GFR (MDRD) Af Amer 76, Est GFR (MDRD) Non-Af 63, BUN/Creatinine Ratio 18.4, Glucose 183 H, Calcium 8.2 L, Total Bilirubin 1.20 H, AST 11 L, ALT 15 L, Alkaline Phosphatase 115, Total Protein 6.1 L, Albumin 1.9 L, Globulin 4.2, Albumin/Globulin Ratio 0.5 L 12/07/23 04:38: POC Glucose 153 H Micro: Microbiology 12/06/23 16:54 Mucosa - Nasopharyngeal SARS-CoV-2, Influenza & RSV (PCR) - Final 12/06/23 00:57 Urine, Clean Catch Legionella Antigen - Final 12/06/23 00:57 Urine, Clean Catch Streptococcus pneumoniae Antigen (M - Final Radiography Diagnostic Testing: Radiology Impression Echocardiogram 12/06/23 03:54 Interpretation Summary Normal LV size. Left ventricular systolic function is normal. The left ventricular ejection fraction is 55 %. Stage 1 diastolic dysfunction. Contrast injection was performed. Ordering Physician: Jose Galeana Referring Physician: Clovis Lynn Performed By: Ingrid Malcolm, NATALIECS, RVT Chest X-Ray 12/06/23 09:00 IMPRESSION: Pleural parenchymal changes at the right lung base. There has been improvement as compared to prior study. Electronically Signed: Kina Johns MD at 13:23 EDT , Physical Exam Narrative General: Alert, confused, Cooperative, No apparent distress HEENT: Atraumatic, PERRLA, EOMI, Normocephalic Oral: Moist Mucosa Neck: Supple, No JVD Lungs: Diminished, Normal air movement, scattered rhonchi right greater than left, No wheeze, No rales Cardiovascular: Regular rate, Regular Rhythm, Normal S1, Normal S2, No murmurs Abdomen: Soft, Non Tender, Non-Distended, No Hepato-splenomegaly Extremities: No edema, Capillary Refill Less than 3 Seconds Skin: No rashes, No breakdown Musculoskeletal: No Tenderness to Palpation of Joints or Extremities Neurological: No focal neurological deficits, Motor Exam 5/5 strength throughout, Sensory exam intact to light touch and pain Psych/Mental Status: Normal Affect, Appropriate Assessment & Plan Assessment/Plan (1) Sepsis: QUALIFIERS: Sepsis type: sepsis due to unspecified organism S epsis acute organ dysfunction status: with acute organ dysfunction Severe sepsis acute organ dysfunction type: encephalopathy Severe sepsis shock status: without septic shock Qualified Code(s): A41.9 - Sepsis, unspecified organism; R65.20 - Severe sepsis without septic shock; G93.41 - Metabolic encephalopathy (2) Right lower lobe pneumonia: QUALIFIERS: Pneumonia type: due to unspecified organism Qualified Code(s): J18.9 - Pneumonia, unspecified organism (3) Parapneumonic effusion: (4) Respiratory insufficiency: (5) Septic encephalopathy: (6) Obesity (BMI 30-39.9): PLAN: Plan 1. Sepsis secondary to pneumonia with possible parapneumonic effusion with acute hypoxic respiratory failure and metabolic encephalopathy ? Proceed with thoracentesis ? Continued with broad-spectrum antibiotics ? Wean BiPAP as able, respiratory status has stabilized ? Echo was obtained with an EF of 55% stage I diastolic dysfunction ? Appreciate hospice nurse practitioner assistance 2. Essential HTN/CAD status post CABG/HLD ? Blood pressure little bit high, placed him on labetalol 20 mg as needed ? Continue with statin when taking p.o. ? We will monitor make adjustments as necessary 3. DM2 ? Sliding scale insulin ? Accu-Cheks ? We will monitor make adjustments as necessary ? A1c of 8.5 4. Gout ? Stable ? Can resume allopurinol when taking p.o. 5. GERD ? Stable ? Continue with IV Protonix DVT: SCDs Charges/Coding Visit Charges Inpatient E&M: 24410 Subs Hosp L2
[2023-12-07] MEDS: Dexmedetomidine 1,000 mcg in 0.9% NS 240 mL 28.4 MCG CONT INF (10:35)
[2023-12-07] MEDS: Labetalol (Compound) 20 MG/4 ML SYRINGE IV (10:36)
[2023-12-07 11:06] LABS: Bedside Glucose 179 mg/dL (74-106)
[2023-12-07 13:04] LABS: Vancomycin, Trough Level 11.4 ug/mL (5.0-15.0)
--- NOTE | 2023-12-07 13:18 | PCM.RX.CS ---
Consult Antibiotic Management Pharmacy has been consulted to manage selected antibiotic: Vancomycin Type of Intervention Type of Consult: Follow-up Suspected Infection Suspected Infection: Sepsis and Pneumonia Labs Labs: Sodium 138 mmol/L (136-145) 12/07/23 04:33 Potassium 4.2 mmol/L (3.5-5.1) 12/07/23 04:33 Chloride 111 mmol/L (98-107) H 12/07/23 04:33 Carbon Dioxide 23.0 mmol/L (21.0-32.0) 12/07/23 04:33 Anion Gap 4 (5-15) L 12/07/23 04:33 BUN 23 mg/dL (7-18) H 12/07/23 04:33 Creatinine 1.25 mg/dL (0.70-1.30) 12/07/23 04:33 Est GFR (MDRD) Af Amer 76 mL/min (>60) 12/07/23 04:33 Est GFR (MDRD) Non-Af 63 mL/min (>60) 12/07/23 04:33 BUN/Creatinine Ratio 18.4 RATIO (10-20) 12/07/23 04:33 Glucose 183 mg/dL (74-106) H 12/07/23 04:33 Vancomycin Trough 11.4 ug/mL (5.0-15.0) 12/07/23 12:35 Microbiology Microbiology: Microbiology 12/06/23 16:54 Mucosa - Nasopharyngeal SARS-CoV-2, Influenza & RSV (PCR) - Final 12/06/23 00:57 Urine, Clean Catch Legionella Antigen - Final 12/06/23 00:57 Urine, Clean Catch Streptococcus pneumoniae Antigen (M - Final Goal Trough Goal Trough: 15-20 mcg/mL Pharmacy Plan for Drug Dosing Pharmacy Plan for Drug Dosing: VANCOMYCIN LEVEL RECEIVED Current Vancomycin Dose: 1500mg Q12H Number of Doses Received: 1500mg x2, 1750mg x1 Vancomycin Level: 11.4 Hours Since Last Dose: 10.5 Renal Function: sCr 1.25 Renal Function Trend: stable Lab/Micro: pending Vancomycin Plan/Comments: Increase Vancomycin dosing regimen to 2000mg Q12H due to SUBtherapeutic drug level Pending Level: Vancomycin trough @ 01:30 12/09/23 Pharmacy Service will continue to monitor and adjust dosing as required. Follow-Up Labs Follow-Up Labs: Trough: Vancomycin (:30 12/09/23)
--- NOTE | 2023-12-07 13:45 | FLU_PTH ---
PATIENT: BOBBY HARRIS LOC: [facility]#:[id number] AGE/SX: 58/M ROOM: [facility] RE12/06/[address]: Dr. Eulogio Barroso MD : 1965 BED: 1 DIS: 12/09/2023 SPEC #: [id number] RECD: 12/07/23 15:07 STATUS: LEANNE REQ #: [id number] GEORGE: 12/07/23 13:[address]: Eulogio Barroso DEPT: CYTOLOGY RECD BY: Gisselle Bhatti ENTERED: 12/07/23 15:07 SP TYPE: Fluid OTHR DR: MD Dr. Meir Og MD Dr. Derek Brown, DO Dr. David de Lorenzo, DO Dr. Edward Matheis, MD Dr. Gautam Baskaran, MD Dr. Gabriele Pedicelli, MD Dr. Yordanos Habtegebriel, MD Dr. Hemant Dand, MD Dr. Kimber Foust, MD Dr. Lamia Aljundi, MD Dr. Pritam Ghosh, MD Dr. Pavan Irukulla, MD Dr. Saad Farooqi, MD Dr. Thomas Hiland, MD Dr. Vikram Anand, MD Dr. William Haden, MD Tissues: THORACIC FLUID Procedures: Special Stain Group II Surgery Specimen Level IV Cytospin Fluid HEADER OPERATION: Thoracentesis fluid PRE-OP DIAGNOSIS: TISSUE SUBMITTED: Thoracentesis fluid for cytology DIAGNOSIS CYTOLOGY Thoracentesis fluid for cytology (cytospin): Negative for malignant cells. Acute inflammation. See comment. NEGAR/ 12/08/23 COMMENT Clinical correlation and appropriate follow up are necessary. CYTOLOGY STUDY Slides are reviewed. CYTOLOGY GROSS Received is 85 ml of yellow cloudy fluid labeled with the patient's name and and designated per the requisition as Thoracentesis fluid. Submitted for cytology preparation including cell block. Mr 12/07/2023 TC:2 CPT: 75228 ,90133
[2023-12-07] MEDS: Lidocaine 2% (20 ml mdv) 20 ML Vial INFILT (13:47)
--- NOTE | 2023-12-07 13:55 | RAD_ITS ---
INDICATION: post thoracentesis EXAMINATION/TECHNIQUE: X-RAY - XR Chest 2 Views COMPARISON: Prior study dated: 12/06/2023 FINDINGS: LINES/DEVICES: None. LUNGS: Persistent elevation of the right hemidiaphragm. Right lung opacity/atelectasis unchanged. Pleural-based density in the right mid chest bilaterally evaluated on the recent CT scan.. MEDIASTINUM AND CARDIOVASCULAR STRUCTURES: Status post median sternotomy. BONES AND SOFT TISSUES: Unchanged. RAD/Chest Insp/Exp 2 View IMPRESSION: No significant change. Electronically Signed: Vasquez Ornelas MD at 14:42 EDT ,
--- NOTE | 2023-12-07 14:07 | PRO.PCM_ITS ---
Procedure Report Date of Procedure: 12/07/23 Assessment & Plan Assessment/Plan (1) Parapneumonic effusion: PLAN: PROCEDURE: Ultrasound Guided Thoracentesis ORDERING PROVIDER: Dr. Barroso INDICATION: Male, 58 years old. Right pleural effusion. PROVIDER: DELILAH Moreno PROCEDURE: The risks, benefits, and alternatives to the procedure were explained to the patient. The specific risks of bleeding, infection, and pneumothorax requiring chest tube insertion were discussed and accepted. Written informed consent was obtained. The patient was placed in the sitting, upright position. Ultrasonographic evaluation of the bilateral lower pleural spaces was carried out. An adequate pocket was identified in the right lower pleural space.The overlying skin was prepped and draped in sterile fashion. 2% lidocaine was administered subcutaneously for local anesthesia. Under ultrasound guidance, a 5-Taiwanese thoracentesis needle/catheter system was advanced into the right posterior lower pleural fluid collection. 170 ml of cloudy yellow colored fluid was drained. 100 mL of this fluid was collected and sent to laboratory for analysis. The catheter was removed, and a sterile dressing was applied. The patient tolerated the procedure well. A chest x-ray was ordered. IMPRESSION: Successful ultrasound-guided diagnostic thoracentesis. Suspect remaining effusion is loculated. Procedures Radiology Radiology US Procedures: 23557 Thoracentesis
[2023-12-07] MEDS: Vancomycin HCl 2,000 MG in 0.9% Normal Saline (500mL Bag) 500 ML 250 MG IV (14:18)
[2023-12-07 14:31] LABS: Body Fluid Mononuclear WBC # 0.258 10^3/uL; Body Fluid Mononuclear WBC % 12.6 %; Body Fluid Polynuclear WBC # 1.788 10^3/uL; Body Fluid Polynuclear WBC % 87.4 %; Body Fluid Total Cells Counted 2.046 10^3/ul; White Blood Count/Body Fluid 2.046 10^3/uL
[2023-12-07 15:27] LABS: Appearance/Body Fluid SL CLDY; Auto B Fluid Analyzer BKGD Ct COUNTS W/IN LIMITS (W/IN LIMITS); Color/Body Fluid YELLOW; Source- Body Fluid THORACENTESIS
[2023-12-07 15:28] LABS: Body Fluid QC Type(s) BF3Q; Red Cell Count/Body Fluid 110 /mm3
[2023-12-07 15:39] LABS: Glucose, Body Fluid 76 mg/dL (40-70); LDH,Body Fluid 1080 Units/L (Not Establ.); Protein, Body Fluid 4.5 g/dL (Not Establ.)
[2023-12-07 16:13] LABS: Pathologist Review Reviewed
[2023-12-07] MEDS: Carvedilol 6.25 MG Tablet PO (16:41)
[2023-12-07 17:08] LABS: Bedside Glucose 235 mg/dL (74-106)
[2023-12-07] MEDS: Acetaminophen 325 MG Tablet 650 MG PO (20:11)
[2023-12-07] MEDS: oxyCODONE 5 MG Tablet PO (20:11)
[2023-12-07 20:37] LABS: Bedside Glucose 195 mg/dL (74-106)
[2023-12-08] VITALS (18 sets, daily range): BP systolic 126–195; BP diastolic 76–111; PULSE 59–103; RESP 14–38; TEMP 36.4–37.2; O2SAT 92–96; BMI 38.0
[2023-12-08] MEDS: Vancomycin HCl 2,000 MG in 0.9% Normal Saline (500mL Bag) 500 ML 250 MG IV ×2 (01:57→13:17)
[2023-12-08] MEDS: Piperacil/Tazobactam 3.375 GM in 0.9% Normal Saline (50mL MB+) 50 ML IV ×3 (04:54→21:41)
[2023-12-08 05:07] LABS: Absolute Lymphocyte Count 1.78 X10^3/uL (0.83-4.51); Absolute Neutrophil Count 13.2 X10^3/uL (2.0-7.7); Basophil# 0.07 X10^3/uL; Basophil% 0.4 % (0-1); Eosinophil# 0.28 X10^3/uL; Eosinophils% 1.6 % (0-5); Hematocrit 38.9 % (40-54); Hemoglobin 12.5 g/dL (13.0-16.5); Lymphocyte # 1.78 X10^3/ul (0.83-4.51); Lymphocyte % 10.5 % (19-41); Mean Corp Hgb Conc 32.1 g/dL (32-36); Mean Corpuscular Hgb 28.3 pg (27.0-32.0); Mean Corpuscular Volume 88.2 fL (80-94); Mean Platelet Vol. 10.2 fl (6.2-12.0); Monocyte# 1.48 X10^3/uL; Monocyte% 8.7 % (0-10); NRBC Flagged by Analyzer 0 % (0-5); Neutrophil # 13.17 X10^3/uL (2.7-7.7); Neutrophil % 77.7 % (47-70); Platelet Count 319 K/mm3 (150-450); RBC Distribution Width CV 14.1 % (11.6-14.6); RBC Distribution Width SD 45.6 fl (35.1-43.9); Red Blood Count 4.41 M/mm3 (4.6-6.2)
[2023-12-08] MEDS: Labetalol (Compound) 20 MG/4 ML SYRINGE IV (05:11)
[2023-12-08 05:36] LABS: Anion Gap 6 (5-15); BUN 22 mg/dL (7-18); Calcium,Total 8.6 mg/dL (8.5-10.1); Chloride 106 mmol/L (98-107); Creatinine, Serum 1.16 mg/dL (0.70-1.30); EST Glomerular Filtration Rate 68 mL/min (>60); Est Glom Filt Rate - Afr Amer 83 mL/min (>60); Estimated Creatinine Clearance 86.49 ml/min; Glucose 156 mg/dL (74-106); Sodium Level 134 mmol/L (136-145)
--- NOTE | 2023-12-08 06:48 | PN.CC_ITS ---
Assessment & Plan Assessment/Plan (1) Right lower lobe pneumonia: QUALIFIERS: Pneumonia type: due to unspecified organism Qualified Code(s): J18.9 - Pneumonia, unspecified organism PLAN: Plan RECOMMENDATIONS: 1. Continue supplemental oxygen as needed to maintain saturations at or above 90%. 2. Recommended. BiPAP therapy with naps and nightly. 3. Perform walking oximetry study prior to consideration for discharge home. 4. Continue antimicrobial therapy. 5. Encourage incentive spirometer use and mobilize patient as tolerated. 6. The patient is medically stable for transfer out of the intensive care unit. IMPRESSIONS: 1. Acute respiratory failure Appears to be secondary to right lower lobe pneumonia with associated pleural effusion, with concern for parapneumonic etiology. The patient appears to have stabilized from a respiratory perspective. He did undergo ultrasound-guided thoracentesis with only 170 mL of fluid removed due to the complicated nature of the pleural space. As such, the patient would likely benefit from evaluation by thoracic surgery. Nevertheless, the patient is reluctant to be transferred for specialist evaluation. For now, plan to continue empiric broad-spectrum antimicrobials, pending culture results. Continue to wean supplemental oxygen to maintain saturations at or above 90%. Encourage incentive spirometer use and mobilize patient as tolerated. 2. Encephalopathy Resolved. Most likely secondary to presenting sepsis. 3. Sepsis The patient presented to the hospital with sepsis due to probable pneumonia with acute sepsis related organ dysfunction as evidenced by altered mental status and acute respiratory failure requiring noninvasive positive pressure ventilatory support. The patient has been maintained on appropriate broad-spectrum antimicrobial therapy, pending infectious workup. He remains otherwise hemodynamically stable. 4. History of heart failure with preserved ejection fraction/coronary artery disease/obesity/substance dependency/diabetes mellitus Complicates care, management, recovery and prognosis. Continue supportive measures as noted above. This note was generated with [employer] dictation software. It may contain incorrect words, spelling, and punctuation that were not noted in checking the note before signing. Subjective Subjective The patient was seen and examined at the bedside this morning. Events from the last 24 hours have been reviewed. The patient is currently afebrile, hemodynamically stable and maintaining appropriate oxygen saturations on 3 L/min via nasal cannula. The patient has been weaned from Precedex. He has no specific complaints, but did report that he is anxious to be discharged home. He is not overtly interested in being transferred for thoracic surgery evaluation. The patient did ultimately undergo an ultrasound-guided thoracentesis yesterday. However, only 170 mL of fluid was able to be removed due to the complicated nature of the pleural space. Objective Data Objective Data The patient's most recent lab work, culture data and imaging studies have all been personally reviewed. Surface echocardiogram demonstrated stage I diastolic dysfunction with an ejection fraction of 55%. Pulmonary artery systolic pressure was estimated to be 35 mmHg. Vital Signs: Vital Signs Temp Pulse Resp BP Pulse Ox O2 Del Method O2 Flow Rate 98.1 F 89 23 H 186/92 H 93 Nasal Cannula 3 12/08/23 05:00 12/08/23 06:00 12/08/23 06:00 12/08/23 06:00 12/08/23 06:00 12/08/23 06:00 12/08/23 06:00 FiO2 30 12/08/23 04:00 Oxygen Flow Rate (L/min) 3 Oxygen Delivery Method Nasal Cannula Weight: 257 lb 11.526 oz Body Mass Index (BMI) 38.0 Intake & Output: Intake and Output for Last 24 Hours 12/06/23 12/07/23 12/08/23 23:59 23:59 23:59 Intake Total 5442.15 / 5456.35 2269.27 / 2272.10 597.79 / 597.79 Output Total 850 / 1150 1690 / 1690 Balance 4592.15 / 4306.35 579.27 / 582.10 597.79 / 597.79 Lab / Micro Data Attestation: I reviewed the patient's lab results. 12/08/23 04:45 12/08/23 04:45 Labs: Laboratory Results - last 24 hr 12/07/23 04:33: Diff Path Review Reviewed 12/07/23 10:45: POC Glucose 179 H 12/07/23 12:35: Vancomycin Trough 11.4 12/07/23 14:03: Fluid Source THORACENTESIS, Fluid Color YELLOW, Fluid Appearance SL CLDY, Fluid WBC 2.046, Fluid RBC 110, Fluid Tot Cell Count 2.046, Fld Polynuclear WBCs # 1.788, Fld Polynuclear WBCs % 87.4, Fluid Mononuclear WBCs 0.258, Fld Mononuclear WBCs % 12.6, Fl Pathologist Comment May follow, Fluid Glucose 76 H, Fluid Total Protein 4.5, Fluid LDH 1080, Fluid Comment 2 SEE COMMENT 12/07/23 16:47: POC Glucose 235 H 12/07/23 20:15: POC Glucose 195 H 12/08/23 04:45: WBC 17.0 H, RBC 4.41 L, Hgb 12.5 L, Hct 38.9 L, MCV 88.2, MCH 28.3, MCHC 32.1, RDW Std Deviation 45.6 H, RDW Coeff of Lidia 14.1, Plt Count 319, MPV 10.2, Immature Gran % (Auto) 1.100 H, Neut % (Auto) 77.7 H, Lymph % (Auto) 10.5 L, [place] % (Auto) 8.7, Eos % (Auto) 1.6, Baso % (Auto) 0.4, Absolute Neuts (auto) 13.2 H, Absolute Lymphs (auto) 1.78, Nucleated RBC % 0, Sodium 134 L, Potassium 4.0, Chloride 106, Carbon Dioxide 22.0, Anion Gap 6, BUN 22 H, Creatinine 1.16, Estim Creat Clear Calc 86.49, Est GFR (MDRD) Af Amer 83, Est GFR (MDRD) Non-Af 68, BUN/Creatinine Ratio 19.0, Glucose 156 H, Calcium 8.6 Micro: Microbiology 12/06/23 01:03 Blood Culture (Wb) - Left Hand Blood Culture - Preliminary No growth in 48 hours. 12/06/23 00:42 Blood Culture (Wb) - Left Hand Blood Culture - Preliminary No growth in 48 hours. 12/06/23 16:54 Mucosa - Nasopharyngeal SARS-CoV-2, Influenza & RSV (PCR) - Final 12/06/23 00:57 Urine, Clean Catch Legionella Antigen - Final 12/06/23 00:57 Urine, Clean Catch Streptococcus pneumoniae Antigen (M - Final ABG Data ABG results: ABG 12/06/23 09:00 Specimen Type ART Sample Site Not entered pH 7.36 Bicarbonate Actual 18.4 L Total CO2 19 Base Excess -7 L O2 Saturation 97 O2 % 40.0 ABG pCO2 32.3 L ABG pO2 93 O2 Delivery Device BiPAP Vent Mode Not entered POC PEEP 8 Radiography Diagnostic Testing: Radiology Impression Chest X-Ray 12/07/23 13:55 IMPRESSION: No significant change. Electronically Signed: Vasquez Ornelas MD at 14:42 EDT , Physical Exam Const alert and no apparent distress Constitutional Narrative: Sitting in bedside recliner. General Appearance: cooperative HEENT normocephalic and head/scalp atraumatic Eyes PERRL, EOMs intact bilaterally and conjunctivae normal Neck supple General: trachea midline Chest inspection of chest normal Resp normal respiratory effort Auscultation: diminished lung sounds; Negative for rales, rhonchi or wheezes Cardio regular rate and regular rhythm GI normal to inspection, nondistended, normoactive bowel sounds Extremity no clubbing, cyanosis or edema Skin no rashes or lesions noted Neuro CN's II-XII intact bilaterally, moves all extremities and no focal motor deficits Psych cooperative and affect normal Charges/Coding Visit Charges Inpatient E&M: 41457 Subs Hosp L2
--- NOTE | 2023-12-08 08:06 | PCM.PN.HOSP ---
Subjective Subjective No issues overnight, down to 3 L nasal cannula no longer confused Objective Data Objective Data Vital Signs: Vital Signs Temp Pulse Resp BP Pulse Ox O2 Del Method O2 Flow Rate 98.1 F 93 35 H 180/84 H 93 Nasal Cannula 3 12/08/23 05:00 12/08/23 07:00 12/08/23 07:00 12/08/23 07:00 12/08/23 07:00 12/08/23 07:00 12/08/23 07:00 FiO2 30 12/08/23 04:00 Oxygen Flow Rate (L/min) 3 Oxygen Delivery Method Nasal Cannula Weight: 257 lb 11.526 oz Body Mass Index (BMI) 38.0 Intake & Output: Intake and Output for Last 24 Hours 12/07/23 12/08/23 12/09/23 03:59 03:59 03:59 Intake Total 4522.31 / 4545.01 2196.90 / 2196.90 540 / 540 Output Total 1150 / 1150 1390 / 1390 Balance 3372.31 / 3395.01 806.90 / 806.90 540 / 540 Lab / Micro Data 12/08/23 04:45 12/08/23 04:45 Labs: Laboratory Results - last 24 hr 12/07/23 04:33: Diff Path Review Reviewed 12/07/23 10:45: POC Glucose 179 H 12/07/23 12:35: Vancomycin Trough 11.4 12/07/23 14:03: Fluid Source THORACENTESIS, Fluid Color YELLOW, Fluid Appearance SL CLDY, Fluid WBC 2.046, Fluid RBC 110, Fluid Tot Cell Count 2.046, Fld Polynuclear WBCs # 1.788, Fld Polynuclear WBCs % 87.4, Fluid Mononuclear WBCs 0.258, Fld Mononuclear WBCs % 12.6, Fl Pathologist Comment May follow, Fluid Glucose 76 H, Fluid Total Protein 4.5, Fluid LDH 1080, Fluid Comment 2 SEE COMMENT 12/07/23 16:47: POC Glucose 235 H 12/07/23 20:15: POC Glucose 195 H 12/08/23 04:45: WBC 17.0 H, RBC 4.41 L, Hgb 12.5 L, Hct 38.9 L, MCV 88.2, MCH 28.3, MCHC 32.1, RDW Std Deviation 45.6 H, RDW Coeff of Lidia 14.1, Plt Count 319, MPV 10.2, Immature Gran % (Auto) 1.100 H, Neut % (Auto) 77.7 H, Lymph % (Auto) 10.5 L, [place] % (Auto) 8.7, Eos % (Auto) 1.6, Baso % (Auto) 0.4, Absolute Neuts (auto) 13.2 H, Absolute Lymphs (auto) 1.78, Nucleated RBC % 0, Sodium 134 L, Potassium 4.0, Chloride 106, Carbon Dioxide 22.0, Anion Gap 6, BUN 22 H, Creatinine 1.16, Estim Creat Clear Calc 86.49, Est GFR (MDRD) Af Amer 83, Est GFR (MDRD) Non-Af 68, BUN/Creatinine Ratio 19.0, Glucose 156 H, Calcium 8.6 Micro: Microbiology 12/06/23 01:03 Blood Culture (Wb) - Left Hand Blood Culture - Preliminary No growth in 48 hours. 12/06/23 00:42 Blood Culture (Wb) - Left Hand Blood Culture - Preliminary No growth in 48 hours. 12/06/23 16:54 Mucosa - Nasopharyngeal SARS-CoV-2, Influenza & RSV (PCR) - Final 12/06/23 00:57 Urine, Clean Catch Legionella Antigen - Final 12/06/23 00:57 Urine, Clean Catch Streptococcus pneumoniae Antigen (M - Final Radiography Diagnostic Testing: Radiology Impression Chest X-Ray 12/07/23 13:55 IMPRESSION: No significant change. Electronically Signed: Vasquez Ornelas MD at 14:42 EDT , Physical Exam Narrative General: Alert, oriented x 3, Cooperative, No apparent distress HEENT: Atraumatic, PERRLA, EOMI, Normocephalic Oral: Moist Mucosa Neck: Supple, No JVD Lungs: Diminished, Normal air movement, scattered rhonchi right greater than left, No wheeze, No rales Cardiovascular: Regular rate, Regular Rhythm, Normal S1, Normal S2, No murmurs Abdomen: Soft, Non Tender, Non-Distended, No Hepato-splenomegaly Extremities: No edema, Capillary Refill Less than 3 Seconds Skin: No rashes, No breakdown Musculoskeletal: No Tenderness to Palpation of Joints or Extremities Neurological: No focal neurological deficits, Motor Exam 5/5 strength throughout, Sensory exam intact to light touch and pain Psych/Mental Status: Normal Affect, Appropriate Assessment & Plan Assessment/Plan (1) Sepsis: QUALIFIERS: Sepsis type: sepsis due to unspecified organism Sepsis acute organ dysfunction status: with acute organ dysfunction Severe sepsis acute organ dysfunction type: encephalopathy Severe sepsis shock status: without septic shock Qualified Code(s): A41.9 - Sepsis, unspecified organism; R65.20 - Severe sepsis without septic shock; G93.41 - Metabolic encephalopathy (2) Right lower lobe pneumonia: QUALIFIERS: Pneumonia type: due to unspecified organism Qualified Code(s): J18.9 - Pneumonia, unspecified organism (3) Parapneumonic effusion: (4) Respiratory insufficiency: (5) Septic encephalopathy: (6) Obesity (BMI 30-39.9): PLAN: Plan 1. Sepsis secondary to pneumonia with possible parapneumonic effusion with acute hypoxic respiratory failure and metabolic encephalopathy ? Had 105 cc removed, culture and lab work pending ? Continued with broad-spectrum antibiotics, awaiting cultures from thoracentesis ? Continue with nasal cannula, can transfer to PCU ? Echo was obtained with an EF of 55% stage I diastolic dysfunction ? Appreciate sheet rock hanger assistance 2. Essential HTN/CAD status post CABG/HLD ? Blood pressure little bit high, placed him on labetalol 20 mg as needed ? Continue with statin when taking p.o. ? We will monitor make adjustments as necessary 3. DM2 ? Sliding scale insulin ? Accu-Cheks ? We will monitor make adjustments as necessary ? A1c of 8.5 4. Gout ? Stable ? Can resume allopurinol when taking p.o. 5. GERD ? Stable ? Continue with IV Protonix DVT: SCDs Charges/Coding Visit Charges Inpatient E&M: 19818 Subs Hosp L2
[2023-12-08] MEDS: Carvedilol 12.5 MG Tablet PO ×2 (08:16→21:30)
[2023-12-08] MEDS: Insulin Lispro 100 UNIT/ML INSULN.PEN SC ×4 (08:16→21:35)
[2023-12-08] MEDS: Fluticasone 0.05% 1 SPRAY NASAL.SRY NASAL ×2 (08:16→21:34)
[2023-12-08 08:38] LABS: Bedside Glucose 185 mg/dL (74-106)
[2023-12-08] MEDS: Pantoprazole Sodium 40 MG in 0.9% Normal Saline (100mL MB+) 100 ML 330 MG IV (08:49)
[2023-12-08] MEDS: Enoxaparin 40 MG/0.4 ML Syringe SC (10:10)
[2023-12-08] MEDS: oxyCODONE 5 MG Tablet PO ×2 (10:40→21:31)
[2023-12-08 11:49] LABS: Bedside Glucose 209 mg/dL (74-106)
[2023-12-08 11:51] LABS: Pathologist Comment/Body Fluid Reviewed
--- NOTE | 2023-12-08 12:46 | CASEMGMT ---
Discharge Planning A list of SNF providers including quality and resource use data and consistent with the patient's preferred geographic region, medical needs, and insurance network was created in CarePort Guide.? This list was provided to the SW. Rekha Paige Discharge Planning Asst.
[2023-12-08] MEDS: 0.9% Saline Lock 10 ML Syringe IV ×3 (13:10→22:48)
[2023-12-08] MEDS: Acetaminophen 325 MG Tablet 650 MG PO (14:55)
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
[2023-12-08] MEDS: MELATONIN 3 MG TABLET 6 MG PO (21:28)
[2023-12-08 22:25] LABS: Bedside Glucose 234 mg/dL (74-106)
[2023-12-09] VITALS (9 sets, daily range): BP systolic 154–168; BP diastolic 78–88; PULSE 80–104; RESP 18–22; TEMP 36.6–36.9; O2SAT 86–98; BMI 38.0
--- NOTE | 2023-12-09 01:46 | CPS ---
Patient did not want to wear BIPAP overnight tonight. He is currently on 4L nasal cannula instead
[2023-12-09 02:19] LABS: Vancomycin, Trough Level 20.8 ug/mL (5.0-15.0)
--- NOTE | 2023-12-09 02:27 | PCM.RX.CS ---
Consult Antibiotic Management Pharmacy has been consulted to manage selected antibiotic: Vancomycin Type of Intervention Type of Consult: Follow-up Suspected Infection Suspected Infection: Sepsis Labs Labs: Sodium 134 mmol/L (136-145) L 12/08/23 04:45 Potassium 4.0 mmol/L (3.5-5.1) 12/08/23 04:45 Chloride 106 mmol/L (98-107) 12/08/23 04:45 Carbon Dioxide 22.0 mmol/L (21.0-32.0) 12/08/23 04:45 Anion Gap 6 (5-15) 12/08/23 04:45 BUN 22 mg/dL (7-18) H 12/08/23 04:45 Creatinine 1.16 mg/dL (0.70-1.30) 12/08/23 04:45 Est GFR (MDRD) Af Amer 83 mL/min (>60) 12/08/23 04:45 Est GFR (MDRD) Non-Af 68 mL/min (>60) 12/08/23 04:45 BUN/Creatinine Ratio 19.0 RATIO (10-20) 12/08/23 04:45 Glucose 156 mg/dL (74-106) H 12/08/23 04:45 Vancomycin Trough 20.8 ug/mL (5.0-15.0) H 12/09/23 01:15 Microbiology Microbiology: Microbiology 12/07/23 14:03 Fluid - Thoracentesis Fluid Gram Stain - Final 12/07/23 14:03 Fluid - Thoracentesis Fluid Body Fluid Culture - Preliminary No growth-Final to follow 12/06/23 00:57 Urine, Clean Catch Urine Culture - Preliminary Gram positive whitney 12/06/23 01:03 Blood Culture (Wb) - Left Hand Blood Culture - Preliminary No growth in 48 hours. 12/06/23 00:42 Blood Culture (Wb) - Left Hand Blood Culture - Preliminary No growth in 48 hours. 12/06/23 16:54 Mucosa - Nasopharyngeal SARS-CoV-2, Influenza & RSV (PCR) - Final 12/06/23 00:57 Urine, Clean Catch Legionella Antigen - Final 12/06/23 00:57 Urine, Clean Catch Streptococcus pneumoniae Antigen (M - Final Dosing Weight Weight used for dosin.9 kg Estimated Creatinine Clearance Estimated Creatinine Clearance: 86 Goal Trough Goal Trough: 15-20 mcg/mL Pharmacy Plan for Drug Dosing Pharmacy Plan for Drug Dosing: Vancomycin trough level of 20.8, drawn 12hrs post-dose, was at the top of the target range. Accounting for steadily improving renal function, will continue dosing at 2000mg q12h. Another trough will be drawn in two days. Pharmacy Service will continue to monitor and adjust dosing as required. Follow-Up Labs Follow-Up Labs: Trough: Vancomycin Date/Time Labs Ordered Labs to be done on [date and time ordered]: 12/11/23 @0130
[2023-12-09] MEDS: Vancomycin HCl 2,000 MG in 0.9% Normal Saline (500mL Bag) 500 ML 250 MG IV ×2 (02:36→13:40)
[2023-12-09] MEDS: Acetaminophen 325 MG Tablet 650 MG PO (02:39)
[2023-12-09 05:32] LABS: Absolute Lymphocyte Count 1.48 X10^3/uL (0.83-4.51); Absolute Neutrophil Count 11.2 X10^3/uL (2.0-7.7); Basophil# 0.05 X10^3/uL; Basophil% 0.3 % (0-1); Eosinophil# 0.29 X10^3/uL; Hematocrit 34.3 % (40-54); Hemoglobin 10.8 g/dL (13.0-16.5); Lymphocyte # 1.48 X10^3/ul (0.83-4.51); Mean Corp Hgb Conc 31.5 g/dL (32-36); Mean Corpuscular Hgb 27.8 pg (27.0-32.0); Mean Corpuscular Volume 88.4 fL (80-94); Mean Platelet Vol. 10.5 fl (6.2-12.0); Monocyte# 1.67 X10^3/uL; Monocyte% 11.2 % (0-10); NRBC Flagged by Analyzer 0 % (0-5); Neutrophil # 11.22 X10^3/uL (2.7-7.7); Neutrophil % 75.5 % (47-70); POSITIVE DIFFERENTIAL YES; Platelet Count 316 K/mm3 (150-450); RBC Distribution Width CV 14.4 % (11.6-14.6); RBC Distribution Width SD 46.2 fl (35.1-43.9); Red Blood Count 3.88 M/mm3 (4.6-6.2); White Blood Count 14.9 K/mm3 (4.4-11.0)
[2023-12-09 05:36] LABS: Differential Indicated SCAN CRITERIA MET
[2023-12-09 05:53] LABS: Anion Gap 4 (5-15); BUN 20 mg/dL (7-18); BUN/Creat Ratio 16.8 RATIO (10-20); Calcium,Total 8.3 mg/dL (8.5-10.1); Chloride 106 mmol/L (98-107); Creatinine, Serum 1.19 mg/dL (0.70-1.30); EST Glomerular Filtration Rate 66 mL/min (>60); Est Glom Filt Rate - Afr Amer 80 mL/min (>60); Estimated Creatinine Clearance 84.35 ml/min; Glucose 202 mg/dL (74-106); Potassium 3.9 mmol/L (3.5-5.1); Sodium Level 134 mmol/L (136-145)
[2023-12-09] MEDS: Piperacil/Tazobactam 3.375 GM in 0.9% Normal Saline (50mL MB+) 50 ML IV (06:16)
[2023-12-09] MEDS: Insulin Lispro 100 UNIT/ML INSULN.PEN SC ×2 (06:20→12:56)
[2023-12-09 06:41] LABS: Bedside Glucose 179 mg/dL (74-106)
--- NOTE | 2023-12-09 09:03 | CASEMGMT ---
Social Work SW spoke w/pt in regard to discharge plan. Pt indecisive in regard to discharge plan. Initially he stated wanted to go home, but wants to speak w/his before making a decision. Pt states his is working until 1pm and then will be here. Pt then said if he is going home however, she would just go home. SW asked pt a few times for clarification. He does want to speak w/ about discharge plan. He did mention has 16 spiral steps, but then also states he can do them and take them one at a time. SW spoke w/pt about substance use. Pt states does smoke weed, does not have any intention of stopping. SW asked pt about the positive tox screen for amphetamines. Pt states did use meth a couple of times in the last week. Pt states he no longer plans to use when he leaves here. He states he has been able to not smoke the whole time he's been here also. SW offered resources for substance abuse counseling, pt declined any resources at this time. SW will follow up later today w/pt and , should she come in after work, in regard to discharge plan. CM placed green sheet on chart for home O2 and walker in event pt does go home rather than to SNF. LISANDRA Biggs
[2023-12-09] MEDS: Fluticasone 0.05% 1 SPRAY NASAL.SRY NASAL (09:33)
[2023-12-09] MEDS: Carvedilol 12.5 MG Tablet PO (09:33)
[2023-12-09] MEDS: Pantoprazole Sodium 40 MG in 0.9% Normal Saline (100mL MB+) 100 ML 330 MG IV (09:34)
[2023-12-09] MEDS: Enoxaparin 40 MG/0.4 ML Syringe SC (09:35)
[2023-12-09 11:29] LABS: Bedside Glucose 222 mg/dL (74-106)
--- NOTE | 2023-12-09 11:37 | PCM.PN.TICU ---
Objective Data Objective Data Vital Signs: Vital Signs Last response Temperature 36.8 C 12/09/23 10:21 Temperature Source Temporal 12/09/23 10:21 Pulse Rate 80 12/09/23 10:21 Pulse Strength Weak (1+) 12/09/23 08:43 Respiratory Rate 18 12/09/23 10:21 Respiratory Effort Normal, Non-Labored 12/09/23 08:43 Respiratory Depth Normal 12/09/23 08:43 Respiratory Pattern Tachypnea 12/09/23 08:43 Blood Pressure 154/78 H 12/09/23 10:21 Blood Pressure Mean 103 12/09/23 10:21 Blood Pressure Source Monitor 12/09/23 08:41 Blood Pressure Position Semi-Fowlers 12/09/23 08:41 Blood Pressure Location Left Arm 12/09/23 08:41 Pulse Ox 95 12/09/23 10:21 Oxygen Delivery Method Nasal Cannula 12/09/23 10:21 Oxygen Flow Rate (L/min) 3 12/09/23 10:21 Fraction of Inspired Oxygen (FIO2) 30 12/08/23 04:00 I&O: I&O Last 24 Hours 12/08/23 12/08/23 12/09/23 11:59 23:59 11:59 Intake Total 1007.79 / 1897.79 890.00 / 1897.79 950 / 950 Output Total 175 / 525 350 / 525 800 / 800 Balance 832.79 / 1372.79 540.00 / 1372.79 150 / 150 I&O: Total Stay 12/05/23 22:47 thru 12/09/23 11:08 Intake Total 03343.21 Output Total 3865 Balance 6694.21 Current Meds Ordered / Administered: Current meds ordered / Administered Generic Name Dose Route Start Last Admin Trade Name Freq PRN Reason Stop Dose Admin Acetaminophen 650 mg 12/07/23 18:13 12/09/23 02:39 Acetaminophen 325 Mg Tablet PO 650 mg Q6H PRN PRN Administration Pain 1-10 or Fever Carvedilol 12.5 mg 12/08/23 10:00 12/09/23 09:33 Carvedilol 12.5 Mg Tablet PO 12.5 mg BID MARI Administration Protocol Dextrose 0 gm 12/06/23 04:30 Dextrose 50%-Water 25 Gm/50 Ml Disp.Syrin IV X1 PRN Hypoglycemia Protocol Enoxaparin Sodium 40 mg 12/08/23 10:00 12/09/23 09:35 Enoxaparin 40 Mg/0.4 Ml Syringe SC 40 mg DAILY MARI Administration Fluticasone Propionate 1 spray 12/06/23 10:00 12/09/23 09:33 Fluticasone 0.05% 1 Gracey Nasal.Sry NASAL 1 spray BID MARI Administration Glucagon 1 mg 12/06/23 04:30 Glucagon 1 Mg/Ml Syringe IM X1 PRN Hypoglycemia Vancomycin IV-PHARMACY TO DOSE 500 mls @ 250 mls/hr 12/06/23 04:30 1 each/ Sodium Chloride IV X1 PRN Rx to Dose Protocol Piperacillin Sod/Tazobactam 50 mls @ 12.5 mls/hr 12/06/23 06:00 12/09/23 11:08 Sod 3.375 gm/ Sodium Chloride IV Infused Q8 MARI Infusion Pantoprazole Sodium 40 mg/ 110 mls @ 330 mls/hr 12/06/23 10:00 12/09/23 10:11 Sodium Chloride IV Infused DAILY MARI Infusion Vancomycin HCl 2,000 mg/ 540 mls @ 250 mls/hr 12/07/23 14:00 12/09/23 05:18 Sodium Chloride IV Infused Q12H MARI Infusion Insulin Human Lispro 0 unit 12/07/23 22:00 12/09/23 06:20 Insulin Lispro 100 Unit/Ml Insuln.Pen SC 1 units ACHS MARI Administration Protocol Labetalol HCl 20 mg 12/06/23 10:26 12/08/23 05:11 Labetalol (Compound) 20 Mg/4 Ml Syringe IV 20 mg Q4H PRN PRN Administration SBP> 180 Protocol Melatonin 6 mg 12/08/23 20:30 12/08/23 21:28 Melatonin 3 Mg Tablet PO 6 mg QHS PRN Administration SLEEP Oxycodone HCl 5 mg 12/07/23 18:13 12/08/23 21:31 Oxycodone 5 Mg Tablet PO 5 mg TID PRN Administration Pain Score 1-10 Sodium Chloride 10 - 40 ml 12/06/23 04:42 12/08/23 22:48 0.9% Saline Lock 10 Ml Syringe IV 10 ml UD PRN Administration SALINE FLUSH Vancomycin Protocol 1 lab 12/10/23 23:30 Vancomycin Trough/Random Due MC 12/11/23 03:30 DAILY [facility] Lab / Micro Data Attestation: I reviewed the patient's lab results. 12/09/23 04:50 12/09/23 04:50 Labs: Laboratory Results - last 24 hr 12/07/23 14:03: Fl Pathologist Comment Reviewed 12/08/23 11:27: POC Glucose 209 H 12/08/23 21:19: POC Glucose 234 H 12/09/23 01:15: Vancomycin Trough 20.8 H 12/09/23 04:50: WBC 14.9 H, RBC 3.88 L, Hgb 10.8 L, Hct 34.3 L, MCV 88.4, MCH 27.8, MCHC 31.5 L, RDW Std Deviation 46.2 H, RDW Coeff of Lidia 14.4, Plt Count 316, MPV 10.5, Immature Gran % (Auto) 1.000 H, Neut % (Auto) 75.5 H, Lymph % (Auto) 10.0 L, [place] % (Auto) 11.2 H, Eos % (Auto) 2.0, Baso % (Auto) 0.3, Absolute Neuts (auto) 11.2 H, Absolute Lymphs (auto) 1.48, Nucleated RBC % 0, Diff Path Review October, Sodium 134 L, Potassium 3.9, Chloride 106, Carbon Dioxide 24.0, Anion Gap 4 L, BUN 20 H, Creatinine 1.19, Estim Creat Clear Calc 84.35, Est GFR (MDRD) Af Amer 80, Est GFR (MDRD) Non-Af 66, BUN/Creatinine Ratio 16.8, Glucose 202 H, Calcium 8.3 L 12/09/23 06:18: POC Glucose 179 H 12/09/23 11:11: POC Glucose 222 H Micro: Microbiology 12/07/23 14:03 Fluid - Thoracentesis Fluid Gram Stain - Final 12/07/23 14:03 Fluid - Thoracentesis Fluid Body Fluid Culture - Final No growth aerobically. 12/06/23 00:57 Urine, Clean Catch Urine Culture - Preliminary Gram positive whitney Assessment and Plan . Assessment and plan: Recommendations: 1. RLL process with associated complicated parapneumonic effusion - Gram stain culture NGSF - suspect the sampling was not school admissions representative of the overall pleural pathology and VATS may be necessary to resolve the matter- discussed with patient Physical Exam Const alert and oriented x3 General Appearance: cooperative and well developed HEENT normocephalic Eyes PERRL and EOMs intact bilaterally Neck no lymphadenopathy Resp normal respiratory effort Effort and Inspection: able to speak in complete sentences Auscultation: diminished lung sounds Subjective Subjective Events reviewed, he appears comfortable.
--- NOTE | 2023-12-09 13:01 | CASEMGMT ---
Social Work SW spoke w/pt again, he is confirming will go home. No further social service needs at this time. LISANDRA Biggs
--- NOTE | 2023-12-09 13:07 | CASEMGMT ---
TAMI TELLO updated by therapy that patient was able to ambulate stairs and would like to discharge to home. TAMI CM in to inquire about HHC at discharge. Patient declines HHC at this time and would like to discuss with at home and follow-up with PCP. TAMI TELLO provided patient with HHC list with in-network agencies if he would need HHC in the future. TAMI TELLO discussed home oxygen and walker at discharge. Patient prefers [facility] if needed. Patient denied further needs and had no further questions or concerns. Green sheet placed on chart for home oxygen and FWW.
--- NOTE | 2023-12-09 13:15 | PCM.DC ---
Discharge Instructions Diet Discharge Diet: Low fat / Low cholesterol and Carb Control Diet Activity Discharge Activity: Return to Normal Activity Dressing / Incision Call your doctor if you observe: Fever of 101 or Higher, Shortness of breath, Dizziness, Fainting spells, Swelling in the ankles, Chest pain and Increased palpitations (irregular heartbeat) Follow Up Care Test Results: Test results from this visit will be discussed in further detail at your follow-up appointment, if applicable. Discharge Plan Admission Admit Date/Time: 12/06/23 03:44 Attending Provider: Eulogio Barroso Primary Care Provider: Clovis Lynn Consulting Providers: Jose Galeana; Teja Aguilar; Meir Siddiqui; Francisco Ortiz; Houston Orta; Lamine Edmondson; Aracelis Meehan; Kevin Wilkes; Alba Yan; Chelsie Cowan; Juan José Espinoza; Roddy Velázquez; Carmelo Salgado; Zacarias Mcclure; Syed Navarro; Kian Johns Instructions Additional Instructions / Restrictions: You need to be evaluated by thoracic surgery for definitive treatment within 2 weeks Discharge Orders/Prescriptions Prescriptions: New amoxicillin-pot clavulanate 875-125 mg tablet 1 tab PO BID 14 Days Qty: 28 0RF doxycycline hyclate 100 mg tablet 100 mg PO BID Qty: 14 0RF Continued atorvastatin 40 mg tablet 40 mg PO DAILY allopurinol 300 mg tablet 300 mg PO DAILY aspirin 325 mg tablet 325 mg PO DAILY cyclobenzaprine 10 mg tablet 10 mg PO BID (DME) True Metrix Glucose Test Strip Strip 1 strip MISCELLANEOUS DAILY glimepiride 1 mg tablet 2 mg PO DAILY fluticasone propionate 50 mcg/actuation spray,suspension 1 spray INTRANASAL BID metformin 850 mg tablet 850 mg PO BID omeprazole 40 mg capsule,delayed release(DR/EC) 40 mg PO DAILY sildenafil 100 mg tablet 100 mg PO DAILY PRN (Reason: intercourse) Patient Comments: has not taken in two weeks glimepiride 2 mg tablet 2 mg PO DAILY oxycodone-acetaminophen 5-325 mg tablet 1 tab PO 4X/DAY PRN PRN (Reason: pain) lorazepam 2 mg tablet 2 mg PO BID pregabalin 75 mg capsule 75 mg PO BID (DME) lancets [Unilet Super Thin Lancets] 30 gauge misc 1 lancet MISCELLANEOUS DAILY Referrals / Follow Up: Clovis Lynn MD [Primary Care Provider] - Within 1 Week Disposition Disposition (needs filled in before D/C Order can be placed): Home, Self Care
--- NOTE | 2023-12-09 13:57 | DS.PCM_ITS ---
Providers Date of Admission: 12/06/23 Primary Care Physician: Dr. Clovis Lynn MD Consultations 12/06/23 04:30 Consult: Desktop Publishing Specialist / Pulmonary Medicine Routine Consulting Provider: Intensivists/Pulmonary Med Reason for Consult: Sepsis due to Pneumonia with Parapneumonic Effusion and Septic Encephalopat EMERGENT Consult: No Notified: Yes Date Notified: 12/06/23 Time Notified: 03:48 Method of Notification: Text Consult: Interventional Radiology Routine Consulting Provider: Kian Johns Reason for Consult: Loculated right pleural effusion with sepsis and need for urgent thoracente EMERGENT Consult: No Notified: Yes Date Notified: 12/06/23 Time Notified: 07:55 Method of Notification: Verbal Method of Consult:: In-Person Reason For Visit: SEPSIS WITH PNEUMONIA AND PARAPNEUMONIC EFFUSION Diagnosis Discharge Diagnosis (1) Right lower lobe pneumonia: Status: Acute Code(s): J18.9 - Pneumonia, unspecified organism Qualifiers: Pneumonia type: due to unspecified organism Qualified Code(s): J18.9 - Pneumonia, unspecified organism Medications at Discharge Home Medications allopurinol 300 mg tablet 300 mg PO DAILY 12/05/23 aspirin 325 mg tablet 325 mg PO DAILY 12/05/23 atorvastatin 40 mg tablet 40 mg PO DAILY 12/05/23 blood sugar diagnostic (True Metrix Glucose Test Strip) 12/05/23 cyclobenzaprine 10 mg tablet 10 mg PO BID 12/05/23 fluticasone propionate 50 mcg/actuation nasal spray,suspension 1 spray intranasal BID 12/05/23 glimepiride 1 mg tablet 2 mg PO DAILY 12/05/23 glimepiride 2 mg tablet 2 mg PO DAILY 12/05/23 lancets 30 gauge (Unilet Super Thin Lancets) 12/05/23 lorazepam 2 mg tablet 2 mg PO BID 12/05/23 metformin 850 mg tablet 850 mg PO BID 12/05/23 omeprazole 40 mg capsule,delayed release 40 mg PO DAILY 12/05/23 oxycodone-acetaminophen 5 mg-325 mg tablet 1 tab PO 4X/DAY PRN PRN pain 12/05/23 pregabalin 75 mg capsule 75 mg PO BID 12/05/23 sildenafil 100 mg tablet 100 mg PO DAILY PRN intercourse 12/05/23 amoxicillin 875 mg-potassium clavulanate 125 mg tablet 1 tab PO BID 14 days #28 tabs 12/09/23 doxycycline hyclate 100 mg tablet 100 mg PO BID #14 tabs 12/09/23 Hospital Course Operations None Procedures 2-D Echocardiogram and Thoracentesis Summary of Care Provided Minutes Spent on Discharge: 37 Hospital Course: Per HPI: HOUSTON GACRIA, is a 58 M with a past medical history of essential hypertension, obesity; with BMI of 37.3 this admission, DM-2; of unknown control, CAD; s/p [place] and CABG x 4, erectile dysfunction, tobacco abuse, gout, OA; with history of knee surgery and GERD who presents to [facility] ER complaining of altered mental status. Mr. Garcia is not a fully reliable historian so information was gathered from chart, medical staff and computer. According to the records his symptoms began approximately 3 to 4 days prior to admission with intermittent bouts of confusion. The patient's informed the ER he had been anxious and asked for Ativan a couple of times a few days ago but she states he typically does not need this medication. Soon thereafter his noted he has been staggering to walk and more confused but she denies any history of trauma. He did complain of abdominal pain focused mainly in his right upper quadrant with cough and decreased appetite but he denies constipation or diarrhea. He has no history of lung cancer or loculated pleural effusions. There is no report of fever, chills, nausea, vomiting, chest pain or shortness of breath though his respiratory rate was 36 breaths/min and tachycardia at 108 bpm with obvious confusion and leukocytosis of 28.2 K present on admission and ABG pending at this time. In the ER patient was noted to have a CT scan of the abdomen and pelvis with IV contrast that revealed compressive atelectasis of the Right lower lobe with a moderate loculated Right pleural effusion complicated by clinical signs of sepsis due to suspected parapneumonic effusion with pneumonia with head CT also positive for evidence of acute Left maxillary sinusitis with leukocytosis of 28.2K with Left shift present on admission complicated by clinical evidence of septic encephalopathy and acute respiratory insufficiency and the patient was then admitted to the ICU for treatment under the sepsis protocol for stay that is expected to extend beyond 2 midnights with plan for urgent thoracentesis at interventional radiology in the a.m. Hospital Course: 1. Sepsis secondary to pneumonia with parapneumonic effusion/loculated effusion with acute hypoxic respiratory failure metabolic encephalopathy?58-year-old male presented to the hospital with confusion and a fairly clear loculated effusion on the right. Unfortunately he was admitted by the ER instead of being transferred to a tertiary center that could handle a complicated pleural effusion that likely requires VATS for definitive treatment. He was started on broad-spectrum antibiotics and placed on BiPAP. He did have significant respiratory improvement and was able to have a thoracentesis that was only able to withdrawal but 175 cc of purulent fluid thus confirming the diagnosis of a loculated effusion. Unfortunately Gram stain and culture has been negative so far and we are unable to narrow antibiotic choices. He was told that in order to definitively treat this that he would need to be transferred to a tertiary care center with vascular surgery in order to be able to definitively treat this however he refused transfer, I discussed with him the fact that we cannot manage this here definitively but he would like to go home. He did have an amatory pulse ox requiring 3 L nasal cannula which she is also at times refusing to wear. White count is improving on Zosyn and vancomycin and given his noncompliance with definitive treatment and his desire to be discharged he will be discharged on p.o. Augmentin for 14 days as well as doxycycline 100 mg p.o. twice daily for 14 days. I discussed with him the necessity of following up with thoracic surgery as an outpatient and that if he is to get worse that he needs to go to a tertiary center that can definitively treat this in either [place] or [place] as this hospital is not capable at this time with the resources available to manage his disease. He did have an echo during his admission which demonstrated an EF of 55% stage I diastolic dysfunction. He expressed understanding of the risks and benefits of being discharged versus staying in the hospital and he would still like to be discharged home. He is also having decreased mobility and was evaluated by PT/OT however he refused to be discharged to a SNF. 2. Essential hypertension, coronary artery disease status post CABG, hyperlipidemia, type 2 diabetes, gout, GERD are chronic medical conditions which complicate his care. His home medications were continued where appropriate. Physical Exam Narrative General: Alert, oriented x 3, Cooperative, No apparent distress HEENT: Atraumatic, PERRLA, EOMI, Normocephalic Oral: Moist Mucosa Neck: Supple, No JVD Lungs: Diminished, Normal air movement, scattered rhonchi right greater than left, No wheeze, No rales Cardiovascular: Regular rate, Regular Rhythm, Normal S1, Normal S2, No murmurs Abdomen: Soft, Non Tender, Non-Distended, No Hepato-splenomegaly Extremities: No edema, Capillary Refill Less than 3 Seconds Skin: No rashes, No breakdown Musculoskeletal: No Tenderness to Palpation of Joints or Extremities Neurological: No focal neurological deficits, Motor Exam 5/5 strength throughout, Sensory exam intact to light touch and pain Psych/Mental Status: Normal Affect, Appropriate Weight / BMI Weight Weight: 257 lb 15.053 oz Body Mass Index (BMI) 38.0 ABG / Lab / Microbiology Data 12/09/23 04:50 12/09/23 04:50 Laboratory: Laboratory Results - last 24 hr 12/08/23 21:19: POC Glucose 234 H 12/09/23 01:15: Vancomycin Trough 20.8 H 12/09/23 04:50: WBC 14.9 H, RBC 3.88 L, Hgb 10.8 L, Hct 34.3 L, MCV 88.4, MCH 27.8, MCHC 31.5 L, RDW Std Deviation 46.2 H, RDW Coeff of Lidia 14.4, Plt Count 316, MPV 10.5, Immature Gran % (Auto) 1.000 H, Neut % (Auto) 75.5 H, Lymph % (Auto) 10.0 L, [place] % (Auto) 11.2 H, Eos % (Auto) 2.0, Baso % (Auto) 0.3, A bsolute Neuts (auto) 11.2 H, Absolute Lymphs (auto) 1.48, Nucleated RBC % 0, Diff Path Review October, Sodium 134 L, Potassium 3.9, Chloride 106, Carbon Dioxide 24.0, Anion Gap 4 L, BUN 20 H, Creatinine 1.19, Estim Creat Clear Calc 84.35, Est GFR (MDRD) Af Amer 80, Est GFR (MDRD) Non-Af 66, BUN/Creatinine Ratio 16.8, Glucose 202 H, Calcium 8.3 L 12/09/23 06:18: POC Glucose 179 H 12/09/23 11:11: POC Glucose 222 H Microbiology: Microbiology 12/07/23 14:03 Fluid - Thoracentesis Fluid Gram Stain - Final 12/07/23 14:03 Fluid - Thoracentesis Fluid Body Fluid Culture - Final No growth aerobically. 12/06/23 00:57 Urine, Clean Catch Urine Culture - Preliminary Gram positive whitney 12/06/23 01:03 Blood Culture (Wb) - Left Hand Blood Culture - Preliminary No growth in 48 hours. 12/06/23 00:42 Blood Culture (Wb) - Left Hand Blood Culture - Preliminary No growth in 48 hours. 12/06/23 16:54 Mucosa - Nasopharyngeal SARS-CoV-2, Influenza & RSV (PCR) - Final 12/06/23 00:57 Urine, Clean Catch Legionella Antigen - Final 12/06/23 00:57 Urine, Clean Catch Streptococcus pneumoniae Antigen (M - Final D/C Instructions Discharge Diet: Low fat / Low cholesterol and Carb Control Diet Call your doctor if you observe: Fever of 101 or Higher, Shortness of breath, Dizziness, Fainting spells, Swelling in the ankles, Chest pain and Increased palpitations (irregular heartbeat) Meaningful Use Info Meaningful Use Meaningful Use Diagnoses (Choose all that apply): None applicable Ischemic Stroke Statin Dosing Therapy Reference: STATIN DOSE THERAPY REFERENCE: * Patients > 75 years receive moderate or high dose statin therapy. * Patients 75 years or YOUNGER should receive HIGH intensity statin dose unless contraindicated. You will be required to document reason for non-treatment if statin daily dose does not meet guidelines. HIGH DOSE STATIN THERAPY DAILY Atorvastatin > than or = to 40 mg Rosuvastatin > than or = to 20 mg Amlodipine + Atorvastatin > than or = to 2.5/40 mg Ezetimibe + Simvastatin 10/80 mg Simvastatin 80mg Discharge Plan Admission Admit Date/Time: 12/06/23 03:44 Attending Provider: Eulogio Barroso Primary Care Provider: Clovis Lynn Consulting Providers: Jose Galeana; Teja Aguilar; Meir Siddiqui; Francisco Ortiz; Houston Orta; Lamine Edmondson; Aracelis Meehan; Kevin Wilkes; Alba Yan; Chelsie Cowan; Juan José Espinoza; Roddy Velázquez; Carmelo Salgado; Zacarias Mcclure; Syed Navarro; Kian Johns Instructions Additional Instructions / Restrictions: You need to be evaluated by thoracic surgery for definitive treatment within 2 weeks Discharge Orders/Prescriptions Prescriptions: New amoxicillin-pot clavulanate 875-125 mg tablet 1 tab PO BID 14 Days Qty: 28 0RF doxycycline hyclate 100 mg tablet 100 mg PO BID Qty: 14 0RF Continued atorvastatin 40 mg tablet 40 mg PO DAILY allopurinol 300 mg tablet 300 mg PO DAILY aspirin 325 mg tablet 325 mg PO DAILY cyclobenzaprine 10 mg tablet 10 mg PO BID (DME) True Metrix Glucose Test Strip Strip 1 strip MISCELLANEOUS DAILY glimepiride 1 mg tablet 2 mg PO DAILY fluticasone propionate 50 mcg/actuation spray,suspension 1 spray INTRANASAL BID metformin 850 mg tablet 850 mg PO BID omeprazole 40 mg capsule,delayed release(DR/EC) 40 mg PO DAILY sildenafil 100 mg tablet 100 mg PO DAILY PRN (Reason: intercourse) Patient Comments: has not taken in two weeks glimepiride 2 mg tablet 2 mg PO DAILY oxycodone-acetaminophen 5-325 mg tablet 1 tab PO 4X/DAY PRN PRN (Reason: pain) lorazepam 2 mg tablet 2 mg PO BID pregabalin 75 mg capsule 75 mg PO BID (DME) lancets [Unilet Super Thin Lancets] 30 gauge misc 1 lancet MISCELLANEOUS DAILY Referrals / Follow Up: Clovis Lynn MD [Primary Care Provider] - Within 1 Week Disposition Disposition (needs filled in before D/C Order can be placed): Home, Self Care Charges/Coding Visit Charges Inpatient E&M: 99679 Disch Hosp >30min
--- NOTE | 2023-12-09 14:24 | NURSING ---
Call placed to [facility] to set up home oxygen. Steam Fitter Supervisor Maintenance to call pt and coordinate time to come to home. Pt provided with wheeled walker and portable O2 tank.
--- NOTE | 2023-12-09 14:43 | NURSING ---
Patient refusing to be transferred to tertiary care for thoracic surgery consult. Patient insisting on leaving to go home today. Patient refused 1400 Zosyn dosage, took off school bus monitor, and pulled out left hand IV, patient given home oxygen canister and wheeled walker. Patient given discharge teaching. Asked to keep till Vancomycin dose finishes, consented.
--- NOTE | 2023-12-09 16:43 | NURSING ---
Pt ambulated to desk with walker and . Pt was not wearing oxygen. Advised pt that he was requiring 3L NC continuously. P stated 'ya i know I will put it on.' Offered to assist pt with putting in NC, pt declined. Offered assistance to exit, pt state 'no I've got it.' pt ambulated onto elevator with .
[2023-12-11 13:57] LABS: Pathologist Review Reviewed
[2023-12-11 16:46] LABS: Bedside Glucose 196 mg/dL (74-106)
[2023-12-13 13:56] LABS: Prealbumin 5.6 mg/dL (20.0-40.0)
== END 2023-12-09 16:42 | disposition home or self-care (01) | DRG 720 ==
LOC: ED 12-06 03:18 → ICU 12-06 04:44 → PCU 12-08 10:30
PROVIDERS: Admitting Provider Internal Medicine; Emergency Provider Student in an Organized Health Care Education/Training Program; PCP Internal Medicine; Visit Provider Family Medicine
DX: A41.9 Sepsis, unspecified organism (principal); J96.01 Acute respiratory failure with hypoxia; G93.41 Metabolic encephalopathy; J18.9 Pneumonia, unspecified organism; I11.0 Hypertensive heart disease with heart failure; E11.9 Type 2 diabetes mellitus without complications; J01.00 Acute maxillary sinusitis, unspecified; I50.32 Chronic diastolic (congestive) heart failure; J91.8 Pleural effusion in other conditions classified elsewhere; R65.20 Severe sepsis without septic shock; K21.9 Gastro-esophageal reflux disease without esophagitis; I25.10 Atherosclerotic heart disease of native coronary artery without angina pectoris; M10.9 Gout, unspecified; E78.5 Hyperlipidemia, unspecified; I25.2 Old myocardial infarction; F17.210 Nicotine dependence, cigarettes, uncomplicated; G47.33 Obstructive sleep apnea (adult) (pediatric); Z68.37 Body mass index [BMI] 37.0-37.9, adult; N52.9 Male erectile dysfunction, unspecified; E66.9 Obesity, unspecified; Z79.82 Long term (current) use of aspirin; Z79.84 Long term (current) use of oral hypoglycemic drugs; Z79.899 Other long term (current) drug therapy; Z86.73 Personal history of transient ischemic attack (TIA), and cerebral infarction without residual deficits; Z95.1 Presence of aortocoronary bypass graft
CPT/HCPCS: 32555; 36415; 36600; 70450; 71045; 71046; 71275; 74177; 80048; 80053; 80076; 80202; 80307; 80320; 82140; 82607; 82746; 82803; 82945; 82962; 83036; 83605; 83615; 83690; 83880; 84134; 84157; 84443; 84484; 85025; 85610; 87040; 87070; 87075; 87077; 87086; 87088; 87205; 87449; 87631; 88108; 88305; 88313; 89050; 93005; 93306; 94002; 94003; 97116; 97162; 97166; 97530; 97533; 97535; 99285; 99406; J7030; J7040; J7050; Q9957; Q9967; A4216; C8929; G0480

== ENCOUNTER → 2023-12-19 | Outpatient (CLI) | payer MEDICAID, SELFPAY ==
--- NOTE | 2023-12-19 10:35 | RAD_ITS ---
STUDY: X-RAY CHEST REASON FOR EXAM: Male, 58 years old. PNEUMONIA TECHNIQUE: PA and lateral views of the chest. COMPARISON: Comparison is made with prior study dated December 07, 2023. FINDINGS: The right lower lobe infiltrate has improved although the residual changes are present as well as possible loculated effusion in the right major fissure. Elevation of the right hemidiaphragm suggestive of volume loss in the right hemithorax. Sternal cerclage wires are present from a prior sternotomy. Normal mediastinum and darrion. Normal visualized pulmonary arteries. Normal visualized aortic arch and descending thoracic aorta. Normal visualized thoracic spine. Normal visualized ribs, clavicles, and shoulders. There is no demonstrated abnormality of the visualized soft tissue structures of the upper abdomen. RAD/Chest PA and Lateral IMPRESSION: Persistent infiltration in the right lower lobe although this has improved. Findings suggestive of possible loculated pleural effusion in the right major fissure. Further follow-up recommended. Electronically Signed: Kian Johns MD at 11:03 EDT ,
== END | disposition home or self-care (01) ==
LOC: RAD 10:29
PROVIDERS: PCP Internal Medicine; Referring Provider Internal Medicine; Visit Provider Internal Medicine
DX: J18.9 Pneumonia, unspecified organism (principal); J90 Pleural effusion, not elsewhere classified
CPT/HCPCS: 71046

== ENCOUNTER → 2024-09-11 | Outpatient (CLI) | payer MEDICAID, SELFPAY ==
--- NOTE | 2024-09-11 15:20 | MRI_ITS ---
PROCEDURE: MRI brain without and with IV contrast REASON FOR EXAM: BILATERAL OPTIC ATROPHY TECHNIQUE: Multisequence multiplanar MR images of the brain were obtained before and after the administration of intravenous contrast. 22 mL of intravenous Clariscan was administered. COMPARISON: None. FINDINGS: No diffusion restriction to suggest acute/subacute ischemia. No evidence of acute intracranial hemorrhage, midline shift or mass effect. Chronic periventricular insult along the anterior horn of the left lateral ventricle with ex vacuo dilation. Generalized cerebral atrophy. Scattered periventricular, subcortical and deep white matter hyperintense FLAIR signal most likely related to chronic small-vessel ischemic disease. Globes are intact. Optic nerves and extraocular muscles are symmetric and within normal limits. Small amount of fluid in the right mastoid air cells. No pathologic enhancement. MRI/Brain W/WO Contrast IMPRESSION: 1. No acute intracranial process or pathologic enhancement. 2. Atrophy and chronic ischemic changes. Reading Location: [place]
== END | disposition home or self-care (01) ==
LOC: MRI 15:18
PROVIDERS: PCP Internal Medicine; Referring Provider Ophthalmology; Visit Provider Ophthalmology
DX: H47.20 Unspecified optic atrophy (principal)
CPT/HCPCS: 70553; A9575